=== PATIENT | female | born 1985 ===

== ENCOUNTER 2017-03-21 16:30 | Emergency (ER) | payer MEDICAID ==
[2017-03-21 16:31] VITALS: BMI 23.0
[2017-03-21 16:39] VITALS: RESP 16; TEMP 98.8
[2017-03-21] MEDS ORDERED: Sodium Chloride 0.9% 1,000 ML IV STA (17:03)
[2017-03-21] MEDS ORDERED: DiphenhydrAMINE 50 mg/ml Inj IVP STA (17:04)
--- NOTE | 2017-03-21 17:21 | ED PDOC ---
HPI: Headache Time Seen by Provider: 03/21/17 16:42 Chief Complaint (Nursing): Headache Chief Complaint (Provider): Headache History Per: Patient History/Exam Limitations: no limitations Onset/Duration Of Symptoms: Hrs (Since 13:00 today) Current Symptoms Are (Timing): Still Present Additional Complaint(s): 31 y/o female presents to the emergency department with a complaint of a headache that began around 13:00 today, 03/21/2017, while at work. States describes it was a sudden onset pressure like bitemporal headache and very similar to previous episodes of migraines. Associated with mild photophobia, persistent nausea, and 1 episode of vomiting at 14:30 followed by syncope. Syncope was unwitnessed but was then found by co-worker. Reports last meal was around 10 am this morning. Denies taking medications for symptoms, urinary incontinence, tongue biting, focal weakness, or trauma to head. Past Medical History Reviewed: Historical Data, Nursing Documentation, Vital Signs Vital Signs: Last Vital Signs Temp 98.8 F 03/21/17 16:36 Pulse 66 03/21/17 16:36 Resp 16 03/21/17 16:36 BP 121/76 03/21/17 16:36 Pulse Ox 100 03/21/17 16:36 - Medical History PMH: Anxiety, Asthma, Bipolar Disorder, Depression, Kidney Stones (RIGHT), Post Traumatic Stress Disorder Denies: Diabetes, Hepatitis, HIV, HTN, Seizures, Sexually Transmitted Disease - Surgical History Surgical History: No Surg Hx - Family History Family History: States: Unknown Family Hx - Social History Current smoker - smoking cessation education provided: Yes Drugs: Cannabis - Immunization History Hx Tetanus Toxoid Vaccination: No Hx Influenza Vaccination: No Hx Pneumococcal Vaccination: No - Home Medications Home Medications: Ambulatory Orders Medication Instructions Recorded Albuterol Sulfate [Albuterol 2 puff IH QID #1 inh 12/06/13 Sulfate Hfa] Naproxen [Naprosyn] 1 tab PO BID PRN #25 tab 12/24/13 Clindamycin [Cleocin] 300 mg PO QID #28 cap 09/19/16 Ibuprofen [Motrin] 600 mg PO TID PRN #30 tab 09/19/16 traMADol [Ultram] 50 mg PO Q8 PRN #12 tab 09/19/16 Cephalexin [Keflex] 500 mg PO QID #28 capsule 10/17/16 Docusate [Colace] 100 mg PO BID #20 cap 10/17/16 Sulfamethoxazole/Trimethoprim 2 each PO BID #28 tablet 10/17/16 [Bactrim Ds Tablet] oxyCODONE/Acetaminophen [Percocet 1 ea PO Q6 PRN #10 tab 10/17/16 5/325 mg Tab] Acetaminophen/Butalbital/Caf 1 tab PO TID PRN #20 tab 03/21/17 [Fioricet] Ondansetron ODT [Zofran ODT] 1 odt PO Q6 PRN #30 odt 03/21/17 SUMAtriptan [Imitrex] 1 tab PO PRN PRN #12 tab 03/21/17 - Allergies Allergies/Adverse Reactions: Allergies Allergy/AdvReac Type Severity Reaction Status Date / Time hydromorphone HCl Allergy ITCHING Verified 03/21/17 16:36 [From Dilaudid] Review of Systems ROS Statement: Except As Marked, All Systems Reviewed And Found Negative Constitutional: Negative for: Other (Trauma to the head) Eyes: Positive for: Other (Mild photophobia) ENT: Negative for: Other (Tongue biting) Gastrointestinal: Positive for: Nausea (Persistent), Vomiting (1 episode) Genitourinary Female: Negative for: Incontinence Neurological: Positive for: Headache (pressure like bitemporal headache). Negative for: Weakness (No focal weakness) Physical Exam - Reviewed Nursing Documentation Reviewed: Yes Vital Signs Reviewed: Yes - Physical Exam Appears: Positive for: Uncomfortable, In Acute Distress Head Exam: Positive for: ATRAUMATIC, NORMAL INSPECTION, NORMOCEPHALIC Skin: Positive for: Normal Color, Warm, Dry Eye Exam: Positive for: Normal appearance, EOMI, PERRL. Negative for: Nystagmus ENT: Positive for: Normal ENT Inspection. Negative for: Pharyngeal Erythema Neck: Positive for: Normal, Supple Cardiovascular/Chest: Positive for: Regular Rate, Rhythm. Negative for: Murmur Respiratory: Positive for: Normal Breath Sounds. Negative for: Accessory Muscle Use, Respiratory Distress Gastrointestinal/Abdominal: Positive for: Normal Exam, Soft. Negative for: Tenderness Back: Positive for: Normal Inspection Extremity: Positive for: Normal ROM. 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 Negative for: Motor/Sensory Deficits - Laboratory Results Result Diagrams: 03/21/17 17:20 03/21/17 17:20 - ECG O2 Sat by Pulse Oximetry: 100 (RA) Pulse Ox Interpretation: Normal Medical Decision Making Medical Decision Making: Time: 17:03 Initial impression: Migraine and syncope Initial plan: --Lab work-up --EKG --Urine DIP & Preg --Tylenol 975 mg PO --Benadryl 25 mg IVP --Toradol 15 mg IVP --Reglan 10 mg IVP --Sodium Chloride 1L IV 999 mls/hr --Reevaluation Time: 17:30 --Labs are unremarkable. -- Upon provider reevaluation patient is feeling better and improved with IV meds, is medically stable, and requires no further treatment in the ED at this time. Patient will be discharged home with Rx for Fioricet, Zofran ODT, and Imitrex. Counseling was provided, discussed findings, plan of care and answered all questions regarding diagnosis and need for follow up with Dr. Ilir Cabrera MD. There is agreement to discharge plan. Return if symptoms persist or worsen. Clinical Impression: Migraine Scribe Attestation: Documented by Reyna Lancaster, acting as a scribe for Natalya Hall MD. Provider Scribe Attestation: All medical record entries made by the Scribe were at my direction and personally dictated by me. I have reviewed the chart and agree that the record accurately reflects my personal performance of the history, physical exam, medical decision making, and the department course for this patient. I have also personally directed, reviewed, and agree with the discharge instructions and disposition. Disposition - Clinical Impression Clinical Impression: Migraine Counseled Patient/Family Regarding: Diagnosis, Need For Followup, Rx Given - Disposition Referrals: Ilir Cabrera MD [Staff Provider] - 03/22/17 Disposition: Routine/Home Disposition Time: 19:30 Condition: IMPROVED Prescriptions: Acetaminophen/Butalbital/Caf [Fioricet] 1 tab PO TID PRN #20 tab PRN Reason: Headache Ondansetron ODT [Zofran ODT] 1 odt PO Q6 PRN #30 odt PRN Reason: Nausea/Vomiting SUMAtriptan [Imitrex] 1 tab PO PRN PRN #12 tab PRN Reason: Migraine Headache Instructions: Migraine Headache (ED) Forms: [facility] (Mozambican), [facility] ED School/Work Excuse
[2017-03-21] MEDS ORDERED: DiphenhydrAMINE 50 mg/ml Inj ONE (17:22)
[2017-03-21 17:29] LABS: BASO % 0.4 % (0.0-2.0); EOS % 0.3 % (0.0-4.0); HEMOGLOBIN 11.9 g/dL (12.0-16.0); LYMPH # 1.2 K/uL (1.0-4.3); LYMPH % 17.2 % (20.0-40.0); MEAN CELL VOLUME 98.1 fl (81.0-99.0); MEAN CORPUSCULAR HEMOGLOBIN 32.5 pg (27.0-31.0); MEAN CORPUSCULAR HGB CONC 33.1 g/dL (33.0-37.0); MONO # 0.3 K/uL (0.0-0.8); MONO % 5.1 % (0.0-10.0); NEUT # 5.2 K/uL (1.8-7.0); RBC 3.65 Mil/uL (3.80-5.20); RED CELL DISTRIBUTION WIDTH 12.9 % (11.5-14.5); WHITE BLOOD COUNT 6.8 K/uL (4.8-10.8)
[2017-03-21 17:53] LABS: BARBITURATES, UR NEGATIVE (NEGATIVE); BENZODIAZEPINES, UR NEGATIVE (NEGATIVE); OPIATES, UR NEGATIVE (NEGATIVE); PHENCYCLIDINE, UR NEGATIVE (NEGATIVE)
[2017-03-21 18:05] LABS: ALB/GLOB RATIO 1.5 (1.0-2.1); ALBUMIN 3.8 g/dL (3.5-5.0); ALT/SGPT 34 U/L (9-52); AST/SGOT 20 U/L (14-36); BLOOD UREA NITROGEN 15 mg/dl (7-17); CALCIUM 9.4 mg/dL (8.4-10.2); GFR AFRICAN-AMERICAN > 60; GFR NON-AFRICAN AMERICAN > 60
[2017-03-21 20:02] VITALS: BP 111/67; PULSE 82
[2017-03-21 20:52] VITALS: O2SAT 100
--- NOTE | 2017-03-22 07:38 | CARD ---
APPROVED REPORT EKG Measurement Heart [id number] <Conclusion> Normal sinus rhythm with sinus arrhythmia Normal ECG
== END 2017-03-21 20:55 | disposition home or self-care (01) ==
LOC: H.ER 16:30
DX: G43.909 Migraine, unspecified, not intractable, without status migrainosus (principal); F31.9 Bipolar disorder, unspecified; F43.10 Post-traumatic stress disorder, unspecified

== ENCOUNTER 2017-03-31 18:53 | Emergency (ER) | payer MEDICAID ==
[2017-03-31 18:54] VITALS: BMI 23.0
[2017-03-31 19:01] VITALS: BP 133/92; PULSE 92; RESP 16; TEMP 98.4; O2SAT 100
[2017-03-31] MEDS ORDERED: Sodium Chloride 0.9% 1,000 ML IV STA (19:52)
--- NOTE | 2017-03-31 20:12 | ED PDOC ---
HPI: Headache Time Seen by Provider: 03/31/17 19:34 Chief Complaint (Nursing): Anxiety Chief Complaint (Provider): Headache and anxiety History Per: Patient History/Exam Limitations: no limitations, clinical condition Onset/Duration Of Symptoms: Mins (x30 minutes) Current Symptoms Are (Timing): Still Present Additional Complaint(s): Soledad Stephen, a 32 year old female, who has a past medical history of bipolar disorder, asthma and kidney stones presents to the ED complaining of a headache and anxiety which began an hour prior to arrival. The patient states she had an anxiety attack while at work and her current headache is not typical for her anxiety episodes. She states she developed an acute sense of panic and is uncertain as to whether or not she passed out. Event was unwitnessed. She states that she takes ativan for her anxiety but she ran out, she also states that she is not compliant with her bipolar medications. Patient has some associated nausea but no vomiting. Of note: Patient also notes a sensitive area on the back of her head in occiput , tender to touch. Past Medical History Reviewed: Historical Data, Nursing Documentation, Vital Signs Vital Signs: Last Vital Signs Temp 98.4 F 03/31/17 18:59 Pulse 92 H 03/31/17 18:59 Resp 16 03/31/17 18:59 BP 133/92 H 03/31/17 18:59 Pulse Ox 100 03/31/17 18:59 - Medical History PMH: Anxiety, Asthma, Bipolar Disorder, Depression, Kidney Stones (RIGHT), Post Traumatic Stress Disorder Denies: Diabetes, Hepatitis, HIV, HTN, Seizures, Sexually Transmitted Disease - Family History Family History: States: Unknown Family Hx - Social History Current smoker - smoking cessation education provided: Yes - Immunization History Hx Tetanus Toxoid Vaccination: No Hx Influenza Vaccination: No Hx Pneumococcal Vaccination: No - Home Medications Home Medications: Ambulatory Orders Medication Instructions Recorded Albuterol Sulfate [Albuterol 2 puff IH QID #1 inh 12/06/13 Sulfate Hfa] Naproxen [Naprosyn] 1 tab PO BID PRN #25 tab 12/24/13 Clindamycin [Cleocin] 300 mg PO QID #28 cap 09/19/16 Ibuprofen [Motrin] 600 mg PO TID PRN #30 tab 09/19/16 traMADol [Ultram] 50 mg PO Q8 PRN #12 tab 09/19/16 Cephalexin [Keflex] 500 mg PO QID #28 capsule 10/17/16 Docusate [Colace] 100 mg PO BID #20 cap 10/17/16 Sulfamethoxazole/Trimethoprim 2 each PO BID #28 tablet 10/17/16 [Bactrim Ds Tablet] oxyCODONE/Acetaminophen [Percocet 1 ea PO Q6 PRN #10 tab 10/17/16 5/325 mg Tab] Acetaminophen/Butalbital/Caf 1 tab PO TID PRN #20 tab 03/21/17 [Fioricet] Ondansetron ODT [Zofran ODT] 1 odt PO Q6 PRN #30 odt 03/21/17 SUMAtriptan [Imitrex] 1 tab PO PRN PRN #12 tab 03/21/17 - Allergies Allergies/Adverse Reactions: Allergies Allergy/AdvReac Type Severity Reaction Status Date / Time hydromorphone HCl Allergy ITCHING Verified 03/31/17 18:58 [From Dilaudid] Review of Systems ROS Statement: Except As Marked, All Systems Reviewed And Found Negative Gastrointestinal: Positive for: Nausea. Negative for: Vomiting Neurological: Positive for: Headache Psych: Positive for: Anxiety Physical Exam - Reviewed Nursing Documentation Reviewed: Yes Vital Signs Reviewed: Yes - Physical Exam Appears: Positive for: Non-toxic, No Acute Distress Head Exam: Positive for: ATRAUMATIC (Small palpable hematoma to occiput mildly tender.), NORMOCEPHALIC Skin: Positive for: Normal Color, Warm, Dry. Negative for: Rash Eye Exam: Positive for: EOMI, PERRL ENT: Positive for: Normal ENT Inspection Neck: Positive for: Normal, Painless ROM, Supple Cardiovascular/Chest: Positive for: Regular Rate, Rhythm, Chest Non Tender. Negative for: Tachycardia Respiratory: Positive for: Normal Breath Sounds. Negative for: Wheezing, Respiratory Distress Gastrointestinal/Abdominal: Positive for: Bowel Sounds, Soft. Negative for: Tenderness, Mass, Guarding, Rebound Back: Negative for: L CVA Tenderness, R CVA Tenderness Extremity: Negative for: Tenderness, Pedal Edema, Deformity, Swelling Neurologic/Psych: Positive for: Alert, Oriented, Gait - Laboratory Results Result Diagrams: 03/31/17 20:22 03/31/17 20:22 - ECG O2 Sat by Pulse Oximetry: 100 (RA) Pulse Ox Interpretation: Normal Medical Decision Making Medical Decision Makin Initial Impression: 32 year old female presenting with headache in setting of anxiety attack and non compliance with medication Initial Plan: * Alcohol Serum * CMP * Drug Screen * Crisis Evaluation * Upreg * Udip * CBC * NS 1000mls IV 1000mls/hr * Reglan 10mg IVPB * Urinalysis * Reevaluation 2232 Dictated and Authenticated by: Cyril Harper MD EXAM: CT Head Without Intravenous Contrast CLINICAL HISTORY: 32 years old, female; Pain; Headache; Headache not specified TECHNIQUE: Axial computed tomography images of the head/brain without intravenous contrast. All CT scans at this facility use one or more dose reduction techniques, viz.: automated exposure control; ma/kV adjustment per patient size (including targeted exams where dose is matched to indication; i.e. head); or iterative reconstruction technique. Coronal and sagittal reformatted images were created and reviewed. COMPARISON: No relevant prior studies available. FINDINGS: Brain: No intracranial hemorrhage. No mass. No definite edema. Ventricles: No hydrocephalus. Bones/joints: No acute fracture. Soft tissues: Unremarkable. Sinuses: No acute sinusitis. Mastoid air cells: No mastoid effusion. Orbits: Unremarkable as visualized. IMPRESSION: 1. No acute intracranial abnormality. 2256 Labs reviewed no clinically significant abnormalities. Patient has been evaluated by crisis and is stable for discharge. Patient has been referred to mental health center. Patient is complaining of persistent headache and requested fiorecet which was given. Diagnosis: Anxiety and Headache Condition: Stable Patient is medically stable and ready for d/c. Scribe Attestation Documented by Renita Esquivel acting as a scribe for Rafy Garcia MD. Provider Attestation All medical record entries made by the Scribe were at my direction and personally dictated by me. I have reviewed the chart and agree that the record accurately reflects my personal performance of the history, physical exam, medical decision making, and the department course for this patient. I have also personally directed, reviewed, and agree with the discharge instructions and disposition. Disposition - Clinical Impression Clinical Impression: Anxiety attack - Patient ED Disposition Is Patient to be Admitted: No Counseled Patient/Family Regarding: Studies Performed, Diagnosis - Disposition Disposition: Routine/Home Disposition Time: 22:57 Condition: STABLE Instructions: Anxiety (ED) Forms: [facility] (Hong Konger)
[2017-03-31 20:27] LABS: BASO % 0.5 % (0.0-2.0); EOS % 0.3 % (0.0-4.0); HEMOGLOBIN 12.8 g/dL (12.0-16.0); LYMPH # 1.5 K/uL (1.0-4.3); LYMPH % 15.2 % (20.0-40.0); MEAN CELL VOLUME 97.4 fl (81.0-99.0); MEAN CORPUSCULAR HEMOGLOBIN 32.5 pg (27.0-31.0); MEAN CORPUSCULAR HGB CONC 33.4 g/dL (33.0-37.0); MONO # 0.6 K/uL (0.0-0.8); MONO % 6.5 % (0.0-10.0); NEUT # 7.4 K/uL (1.8-7.0); NEUT % 77.5 % (50.0-75.0); RBC 3.95 Mil/uL (3.80-5.20); RED CELL DISTRIBUTION WIDTH 13.4 % (11.5-14.5); WHITE BLOOD COUNT 9.5 K/uL (4.8-10.8)
[2017-03-31 20:32] LABS: SQUAMOUS EPITHIAL 5 /hpf (0-5); URINE BACTERIA RARE (<OCC); URINE BILIRUBIN NEGATIVE (NEGATIVE); URINE BLOOD NEGATIVE (NEGATIVE); URINE CLARITY CLOUDY (Clear); URINE COLOR YELLOW (YELLOW); URINE GLUCOSE (UA) NEG (Normal); URINE LEUKOCYTE ESTERASE NEG Leu/uL (Negative); URINE NITRATE NEGATIVE (NEGATIVE); URINE PROTEIN 30 mg/dL (NEGATIVE); URINE UROBILINOGEN 0.2-1.0 mg/dL (0.2-1.0)
[2017-03-31 20:41] LABS: ALB/GLOB RATIO 1.5 (1.0-2.1); ALBUMIN 4.3 g/dL (3.5-5.0); ALT/SGPT 27 U/L (9-52); AST/SGOT 16 U/L (14-36); BLOOD UREA NITROGEN 20 mg/dl (7-17); CALCIUM 9.3 mg/dL (8.4-10.2); GFR AFRICAN-AMERICAN > 60; GFR NON-AFRICAN AMERICAN > 60
[2017-03-31 20:50] LABS: BARBITURATES, UR NEGATIVE (NEGATIVE); BENZODIAZEPINES, UR NEGATIVE (NEGATIVE); OPIATES, UR NEGATIVE (NEGATIVE); PHENCYCLIDINE, UR NEGATIVE (NEGATIVE)
--- NOTE | 2017-03-31 22:33 | CT ---
EXAM: CT Head Without Intravenous Contrast CLINICAL HISTORY: 32 years old, female; Pain; Headache; Headache not specified TECHNIQUE: Axial computed tomography images of the head/brain without intravenous contrast. All CT scans at this facility use one or more dose reduction techniques, viz.: automated exposure control; ma/kV adjustment per patient size (including targeted exams where dose is matched to indication; i.e. head); or iterative reconstruction technique. Coronal and sagittal reformatted images were created and reviewed. COMPARISON: No relevant prior studies available. FINDINGS: Brain: No intracranial hemorrhage. No mass. No definite edema. Ventricles: No hydrocephalus. Bones/joints: No acute fracture. Soft tissues: Unremarkable. Sinuses: No acute sinusitis. Mastoid air cells: No mastoid effusion. Orbits: Unremarkable as visualized. IMPRESSION: 1. No acute intracranial abnormality.
[2017-03-31] MEDS ORDERED: Apap-Butalbital-Caffeine 325-50-40mg Tab PO STA (22:50)
== END 2017-03-31 22:58 | disposition home or self-care (01) ==
LOC: H.ER 18:53
DX: R51 Headache (principal); F41.9 Anxiety disorder, unspecified; F31.9 Bipolar disorder, unspecified; F43.10 Post-traumatic stress disorder, unspecified; J45.909 Unspecified asthma, uncomplicated

== ENCOUNTER 2017-08-02 23:07 | Emergency (ER) | payer MEDICAID ==
[2017-08-02 23:07] VITALS: BMI 23.0
[2017-08-02 23:21] VITALS: RESP 16
--- NOTE | 2017-08-03 00:26 | ED PDOC ---
HPI: Skin/Bite Injury Time Seen by Provider: 08/02/17 23:28 Chief Complaint (Nursing): Abnormal Skin Integrity Chief Complaint (Provider): rash History Per: Patient History/Exam Limitations: no limitations Onset/Duration Of Symptoms: Days (2) Current Symptoms Are (Timing): Still Present Quality Of Symptoms: Itching Additional History Per: Patient Additional Complaint(s): 32 y/o female presents with pruritic rash to navel x 2 days. Patient applying anti-bacterial cream without improvement. Denies fever, nausea/vomiting, abdominal pain, drainage from site,known allergen. Past Medical History Reviewed: Historical Data, Nursing Documentation, Vital Signs Vital Signs: Last Vital Signs Temp 98.7 F 08/02/17 23:17 Pulse 63 08/02/17 23:17 Resp 16 08/02/17 23:17 BP 132/82 08/02/17 23:17 Pulse Ox 99 08/02/17 23:17 - Medical History PMH: Anxiety, Asthma, Bipolar Disorder, Depression, Kidney Stones (RIGHT), Migraine, Post Traumatic Stress Disorder Denies: Diabetes, Hepatitis, HIV, HTN, Seizures, Sexually Transmitted Disease - Family History Family History: States: Unknown Family Hx - Immunization History Hx Tetanus Toxoid Vaccination: No Hx Influenza Vaccination: No Hx Pneumococcal Vaccination: No - Home Medications Home Medications: Ambulatory Orders Medication Instructions Recorded Albuterol Sulfate [Albuterol 2 puff IH QID #1 inh 12/06/13 Sulfate Hfa] Naproxen [Naprosyn] 1 tab PO BID PRN #25 tab 12/24/13 Clindamycin [Cleocin] 300 mg PO QID #28 cap 09/19/16 Ibuprofen [Motrin] 600 mg PO TID PRN #30 tab 09/19/16 traMADol [Ultram] 50 mg PO Q8 PRN #12 tab 09/19/16 Cephalexin [Keflex] 500 mg PO QID #28 capsule 10/17/16 Docusate [Colace] 100 mg PO BID #20 cap 10/17/16 Sulfamethoxazole/Trimethoprim 2 each PO BID #28 tablet 10/17/16 [Bactrim Ds Tablet] oxyCODONE/Acetaminophen [Percocet 1 ea PO Q6 PRN #10 tab 10/17/16 5/325 mg Tab] Acetaminophen/Butalbital/Caf 1 tab PO TID PRN #20 tab 03/21/17 [Fioricet] Ondansetron ODT [Zofran ODT] 1 odt PO Q6 PRN #30 odt 03/21/17 SUMAtriptan [Imitrex] 1 tab PO PRN PRN #12 tab 03/21/17 Clotrimazole 1% Cream [Lotrimin 1%] 1 applic TP BID #1 tube 08/03/17 Hydrocortisone 1% Cream [Cortizone 1 appl TP BID #1 tube 08/03/17 1% Cream] - Allergies Allergies/Adverse Reactions: Allergies Allergy/AdvReac Type Severity Reaction Status Date / Time hydromorphone HCl Allergy ITCHING Verified 03/31/17 18:58 [From Dilaudid] Review of Systems ROS Statement: Except As Marked, All Systems Reviewed And Found Negative Skin: Positive for: Rash Physical Exam - Reviewed Nursing Documentation Reviewed: Yes Vital Signs Reviewed: Yes - Physical Exam Appears: Positive for: Well, Non-toxic, No Acute Distress Head Exam: Positive for: ATRAUMATIC, NORMAL INSPECTION, NORMOCEPHALIC Skin: Positive for: Rash (erythematous papular rash noted surrounding navel with scabbed lesions noted. No pustules, drainage noted) Extremity: Positive for: Normal ROM - ECG O2 Sat by Pulse Oximetry: 99 - Progress ED Course And Treament: Benadryl PO Patient educated on findings, discharged with rx hydrocortisone, clotrimazole. Advised Dermatology follow up. Return to ED for worsening/concerning symptoms. Disposition - Clinical Impression Clinical Impression: Rash and nonspecific skin eruption - Patient ED Disposition Is Patient to be Admitted: No Counseled Patient/Family Regarding: Diagnosis, Need For Followup, Rx Given - Disposition Disposition: Routine/Home Disposition Time: 00:28 Condition: GOOD Prescriptions: Clotrimazole 1% Cream [Lotrimin 1%] 1 applic TP BID #1 tube Hydrocortisone 1% Cream [Cortizone 1% Cream] 1 appl TP BID #1 tube Instructions: Acute Rash (ED) Forms: [facility] [employer] [facility] (Grenadian)
[2017-08-03 00:52] VITALS: BP 122/69; PULSE 81; TEMP 98.2; O2SAT 98
== END 2017-08-03 00:50 | disposition home or self-care (01) ==
LOC: H.ER 23:07
DX: R21 Rash and other nonspecific skin eruption (principal); F31.9 Bipolar disorder, unspecified; F43.10 Post-traumatic stress disorder, unspecified; J45.909 Unspecified asthma, uncomplicated

== ENCOUNTER 2017-08-22 23:33 | Emergency (ER) | payer MEDICAID ==
[2017-08-22 23:33] VITALS: BMI 23.0
[2017-08-22 23:43] VITALS: BP 148/98; RESP 20; TEMP 98.3; O2SAT 100
--- NOTE | 2017-08-23 00:25 | ED PDOC ---
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 (+) SOB. (-) suicidal or homicidal ideation. Reports feeling "like she was having a heart attack" on the walk back from her father's home. Patient notes multiple personal stressors, such has fighting with her and being laid off from work. Notes that she is inconsistently non-compliant with some of her medication and does not see a psychiatrist regularly. PCP: Non CPH Past Medical History Reviewed: Historical Data, Nursing Documentation, Vital Signs Vital Signs: Last Vital Signs Temp 98.3 F 08/22/17 23:40 Pulse 126 H 08/22/17 23:40 Resp 20 08/22/17 23:40 BP 148/98 H 08/22/17 23:40 Pulse Ox 100 08/22/17 23:40 - Medical History PMH: Anxiety, Asthma, Bipolar Disorder, Depression, Kidney Stones (RIGHT), Migraine, Post Traumatic Stress Disorder Denies: Diabetes, Hepatitis, HIV, HTN, Seizures, Sexually Transmitted Disease - Surgical History Surgical History: Denies: No Surg Hx Other surgeries: kidney stone surgery - Family History Family History: States: Unknown Family Hx - Living Arrangements Living Arrangements: With Family - Social History Current smoker - smoking cessation education provided: Yes (5 cigarettes a day ) Ex-Smoker (has not smoked in the last 12 months): No Drugs: Denies - Immunization History Hx Tetanus Toxoid Vaccination: No Hx Influenza Vaccination: No Hx Pneumococcal Vaccination: No - Home Medications Home Medications: Ambulatory Orders Medication Instructions Recorded Albuterol Sulfate [Albuterol 2 puff IH QID #1 inh 12/06/13 Sulfate Hfa] Naproxen [Naprosyn] 1 tab PO BID PRN #25 tab 12/24/13 Clindamycin [Cleocin] 300 mg PO QID #28 cap 09/19/16 Ibuprofen [Motrin] 600 mg PO TID PRN #30 tab 09/19/16 traMADol [Ultram] 50 mg PO Q8 PRN #12 tab 09/19/16 Cephalexin [Keflex] 500 mg PO QID #28 capsule 10/17/16 Docusate [Colace] 100 mg PO BID #20 cap 10/17/16 Sulfamethoxazole/Trimethoprim 2 each PO BID #28 tablet 10/17/16 [Bactrim Ds Tablet] oxyCODONE/Acetaminophen [Percocet 1 ea PO Q6 PRN #10 tab 10/17/16 5/325 mg Tab] Acetaminophen/Butalbital/Caf 1 tab PO TID PRN #20 tab 03/21/17 [Fioricet] Ondansetron ODT [Zofran ODT] 1 odt PO Q6 PRN #30 odt 03/21/17 SUMAtriptan [Imitrex] 1 tab PO PRN PRN #12 tab 03/21/17 Clotrimazole 1% Cream [Lotrimin 1%] 1 applic TP BID #1 tube 08/03/17 Hydrocortisone 1% Cream [Cortizone 1 appl TP BID #1 tube 08/03/17 1% Cream] - Allergies Allergies/Adverse Reactions: Allergies Allergy/AdvReac Type Severity Reaction Status Date / Time hydromorphone HCl Allergy ITCHING Verified 08/22/17 23:39 [From Dilaudid] Review of Systems ROS Statement: Except As Marked, All Systems Reviewed And Found Negative Respiratory: Positive for: Shortness of Breath Psych: Positive for: Anxiety. Negative for: Suicidal ideation, Other ((-) homicidal ideation) Physical Exam - Reviewed Nursing Documentation Reviewed: Yes Vital Signs Reviewed: Yes - Physical Exam Appears: Positive for: Non-toxic, No Acute Distress Skin: Positive for: Normal Color Cardiovascular/Chest: Positive for: Regular Rate, Rhythm, Murmur Respiratory: Positive for: Normal Breath Sounds. Negative for: Respiratory Distress Gastrointestinal/Abdominal: Positive for: Normal Exam, Soft. Negative for: Tenderness Neurologic/Psych: Positive for: Alert (awake), Oriented, Mood/Affect (calm, collected) - ECG ECG Rhythm: Positive for: Sinus Rhythm. Negative for: ST/T Changes Rate: 98 O2 Sat by Pulse Oximetry: 100 (RA) Pulse Ox Interpretation: Normal Medical Decision Making Medical Decision Makin Initial impression: anxiety Initial plan: * EKG * POC Urine 0239 Patient reports feeling improvement in symptoms and as per Dr. Zamora is stable for discharge home. Dx: anxiety Scribe Attestation: Documented by Sandi Cruz acting as a scribe for Diana Bobo MD. Scribe Attestation: All medical record entries made by the Scribe were at my direction and personally dictated by me. I have reviewed the chart and agree that the record accurately reflects my personal performance of the history, physical exam, medical decision making, and the department course for this patient. I have also personally directed, reviewed, and agree with the discharge instructions and disposition. Disposition - Clinical Impression Clinical Impression: Anxiety disorder - Disposition Disposition: Routine/Home Disposition Time: 02:39 Condition: STABLE Additional Instructions: follow up as an outpatient return to the ED with any worsening or concerning symptoms Instructions: Anxiety (ED) Forms: [employer] (Z[place]an)
[2017-08-23 00:29] VITALS: PULSE 98
--- NOTE | 2017-08-23 08:14 | CARD ---
APPROVED REPORT EKG Measurement Heart [id number] <Conclusion> Normal sinus rhythm Normal ECG
== END 2017-08-23 02:48 | disposition home or self-care (01) ==
LOC: H.ER 23:33
DX: F41.9 Anxiety disorder, unspecified (principal); F31.9 Bipolar disorder, unspecified; F43.10 Post-traumatic stress disorder, unspecified; J45.909 Unspecified asthma, uncomplicated

== ENCOUNTER 2017-09-02 18:27 | Emergency (ER) | payer MEDICAID ==
[2017-09-02 18:27] VITALS: BMI 23.0
[2017-09-02] MEDS ORDERED: Naproxen 500 MG TAB PO STA (20:24)
--- NOTE | 2017-09-02 20:27 | ED PDOC ---
Upper Extremity Pain/Injury Time Seen by Provider: 09/02/17 20:14 Chief Complaint (Nursing): Finger,Hand,&Wrist History Per: Patient History/Exam Limitations: no limitations Past Medical History Vital Signs: Last Vital Signs Temp 98.6 F 09/02/17 19:01 Pulse 94 H 09/02/17 19:01 Resp 18 09/02/17 19:01 BP 128/92 H 09/02/17 19:01 Pulse Ox 100 09/02/17 19:01 - Medical History PMH: Anxiety, Asthma, Bipolar Disorder, Depression, Kidney Stones (RIGHT), Migraine, Post Traumatic Stress Disorder Denies: Diabetes, Hepatitis, HIV, HTN, Seizures, Sexually Transmitted Disease - Family History Family History: States: Unknown Family Hx - Immunization History Hx Tetanus Toxoid Vaccination: No Hx Influenza Vaccination: No Hx Pneumococcal Vaccination: No - Home Medications Home Medications: Ambulatory Orders Medication Instructions Recorded Albuterol Sulfate [Albuterol 2 puff IH QID #1 inh 12/06/13 Sulfate Hfa] Naproxen [Naprosyn] 1 tab PO BID PRN #25 tab 12/24/13 Clindamycin [Cleocin] 300 mg PO QID #28 cap 09/19/16 Ibuprofen [Motrin] 600 mg PO TID PRN #30 tab 09/19/16 traMADol [Ultram] 50 mg PO Q8 PRN #12 tab 09/19/16 Cephalexin [Keflex] 500 mg PO QID #28 capsule 10/17/16 Docusate [Colace] 100 mg PO BID #20 cap 10/17/16 Sulfamethoxazole/Trimethoprim 2 each PO BID #28 tablet 10/17/16 [Bactrim Ds Tablet] oxyCODONE/Acetaminophen [Percocet 1 ea PO Q6 PRN #10 tab 10/17/16 5/325 mg Tab] Acetaminophen/Butalbital/Caf 1 tab PO TID PRN #20 tab 03/21/17 [Fioricet] Ondansetron ODT [Zofran ODT] 1 odt PO Q6 PRN #30 odt 03/21/17 SUMAtriptan [Imitrex] 1 tab PO PRN PRN #12 tab 03/21/17 Clotrimazole 1% Cream [Lotrimin 1%] 1 applic TP BID #1 tube 08/03/17 Hydrocortisone 1% Cream [Cortizone 1 appl TP BID #1 tube 08/03/17 1% Cream] Meloxicam [Mobic] 15 mg PO DAILY #20 tab 09/02/17 - Allergies Allergies/Adverse Reactions: Allergies Allergy/AdvReac Type Severity Reaction Status Date / Time hydromorphone HCl Allergy ITCHING Verified 09/02/17 19:01 [From Dilaudid] - ECG O2 Sat by Pulse Oximetry: 100 Medical Decision Making Medical Decision Making: Time: 20:25 Initial impression: Right wrist and hand pain Initial plan: Naproxen 500 mg PO Arnoldo Bandage ~ Scribe Attestation: Documented by Valerie Rivas, acting as a scribe for MONIQUE Byrd. Provider Scribe Attestation: All medical record entries made by the Scribe were at my direction and personally dictated by me. I have reviewed the chart and agree that the record accurately reflects my personal performance of the history, physical exam, medical decision making, and the department course for this patient. I have also personally directed, reviewed, and agree with the discharge instructions and disposition. Disposition - Disposition Forms: [employer] ([place]ami)
--- NOTE | 2017-09-02 20:27 | ED PDOC ---
Upper Extremity Pain/Injury Time Seen by Provider: 09/02/17 20:14 Chief Complaint (Nursing): Finger,Hand,&Wrist Chief Complaint (Provider): Right wrist pain History Per: Patient History/Exam Limitations: no limitations Onset/Duration Of Symptoms: Other (weeks) Additional Complaint(s): Patient is a 32 y/o female with no significant past medical history presenting to the emergency department for pain to her right dorsal hand and wrist ongoing for several weeks. Notes that a bump to the right dorsal wrist developed several days ago. Reports that the pain is worse with bending wrist. Denies trauma, injuries, numbness, or other complaints. PCP: none provided Past Medical History Reviewed: Historical Data, Nursing Documentation, Vital Signs Vital Signs: Last Vital Signs Temp 98.6 F 09/02/17 19:01 Pulse 94 H 09/02/17 19:01 Resp 18 09/02/17 19:01 BP 128/92 H 09/02/17 19:01 Pulse Ox 100 09/02/17 19:01 - Medical History PMH: Anxiety, Asthma, Bipolar Disorder, Depression, Kidney Stones (RIGHT), Migraine, Post Traumatic Stress Disorder Denies: Diabetes, Hepatitis, HIV, HTN, Seizures, Sexually Transmitted Disease - Family History Family History: States: Unknown Family Hx - Social History Current smoker - smoking cessation education provided: Yes Ex-Smoker (has not smoked in the last 12 months): No Alcohol: None Drugs: Denies - Immunization History Hx Tetanus Toxoid Vaccination: No Hx Influenza Vaccination: No Hx Pneumococcal Vaccination: No - Home Medications Home Medications: Ambulatory Orders Medication Instructions Recorded Albuterol Sulfate [Albuterol 2 puff IH QID #1 inh 12/06/13 Sulfate Hfa] Naproxen [Naprosyn] 1 tab PO BID PRN #25 tab 12/24/13 Clindamycin [Cleocin] 300 mg PO QID #28 cap 09/19/16 Ibuprofen [Motrin] 600 mg PO TID PRN #30 tab 09/19/16 traMADol [Ultram] 50 mg PO Q8 PRN #12 tab 09/19/16 Cephalexin [Keflex] 500 mg PO QID #28 capsule 10/17/16 Docusate [Colace] 100 mg PO BID #20 cap 10/17/16 Sulfamethoxazole/Trimethoprim 2 each PO BID #28 tablet 10/17/16 [Bactrim Ds Tablet] oxyCODONE/Acetaminophen [Percocet 1 ea PO Q6 PRN #10 tab 10/17/16 5/325 mg Tab] Acetaminophen/Butalbital/Caf 1 tab PO TID PRN #20 tab 03/21/17 [Fioricet] Ondansetron ODT [Zofran ODT] 1 odt PO Q6 PRN #30 odt 03/21/17 SUMAtriptan [Imitrex] 1 tab PO PRN PRN #12 tab 03/21/17 Clotrimazole 1% Cream [Lotrimin 1%] 1 applic TP BID #1 tube 08/03/17 Hydrocortisone 1% Cream [Cortizone 1 appl TP BID #1 tube 08/03/17 1% Cream] Meloxicam [Mobic] 15 mg PO DAILY #20 tab 09/02/17 - Allergies Allergies/Adverse Reactions: Allergies Allergy/AdvReac Type Severity Reaction Status Date / Time hydromorphone HCl Allergy ITCHING Verified 09/02/17 19:01 [From Dilaudid] Physical Exam - Reviewed Nursing Documentation Reviewed: Yes Vital Signs Reviewed: Yes - Physical Exam Appears: Positive for: Well, Non-toxic, No Acute Distress Head Exam: Positive for: ATRAUMATIC, NORMAL INSPECTION, NORMOCEPHALIC Skin: Positive for: Normal Color, Warm, Dry Eye Exam: Positive for: Normal appearance Neck: Positive for: Normal Pulses-Radial (R): 2+ Extremity: Positive for: Normal ROM, Capillary Refill (normal), Other (ganglion cyst noted on right upper extremity). Negative for: Tenderness, Pedal Edema, Deformity, Swelling Neurologic/Psych: Positive for: Alert, traveling clerk II-XII, Oriented (x3). Negative for : Motor/Sensory Deficits - ECG O2 Sat by Pulse Oximetry: 100 (RA) Pulse Ox Interpretation: Normal Medical Decision Making Medical Decision Making: Time: 20:25 Initial impression: Right wrist and hand pain Initial plan: Naproxen 500 mg PO Arnoldo Bandage 20:26 Advised patient of diagnoses of ganglion cyst. Arnoldo wrap applied. Instructed patient to follow up with an orthopedist. Patient is stable for discharge. Advised patient to return to ED if symptoms worsen. ~ Scribe Attestation: Documented by Valerie Rivas, acting as a scribe for MONIQUE Byrd. Provider Scribe Attestation: All medical record entries made by the Scribe were at my direction and personally dictated by me. I have reviewed the chart and agree that the record accurately reflects my personal performance of the history, physical exam, medical decision making, and the department course for this patient. I have also personally directed, reviewed, and agree with the discharge instructions and disposition. Disposition - Clinical Impression Clinical Impression: Wrist pain, right, Ganglion cyst of dorsum of right wrist - Patient ED Disposition Is Patient to be Admitted: No Counseled Patient/Family Regarding: Diagnosis, Need For Followup, Rx Given - Disposition Referrals: Pratik Morel III, MD [Staff Provider] - Disposition: Routine/Home Disposition Time: 20:26 Condition: STABLE Prescriptions: Meloxicam [Mobic] 15 mg PO DAILY #20 tab Instructions: Ganglion Cysts (ED) Forms: [employer] ([place]), [facility] ED School/Work Excuse Print Language: POLISH - PA / CORPSMAN / Resident Statement / has reviewed & agrees with the documentation as recorded.
[2017-09-02] MEDS ORDERED: Naproxen 500 MG TAB PO ONE (20:28)
[2017-09-02 22:45] VITALS: BP 128/92; PULSE 94; RESP 18; TEMP 98.6; O2SAT 100
== END 2017-09-02 20:57 | disposition home or self-care (01) ==
LOC: H.ER 18:27
DX: M67.431 Ganglion, right wrist (principal)

== ENCOUNTER 2017-09-17 12:46 | Emergency (ER) | payer MEDICAID ==
[2017-09-17 12:46] VITALS: BMI 23.0
[2017-09-17 13:56] VITALS: BP 135/84; PULSE 88; RESP 20; TEMP 98.8; O2SAT 99
[2017-09-17] MEDS: guaiFENesin 200 mg/10 ml Syrup UD PO ONE ×2 (16:14→16:16)
--- NOTE | 2017-09-17 16:26 | ED PDOC ---
HPI: CCC, URI, Sore Throat Time Seen by Provider: 09/17/17 15:04 Chief Complaint (Nursing): Flu-like Symptoms Chief Complaint (Provider): Flu-like Symptoms History Per: Patient History/Exam Limitations: no limitations Onset/Duration Of Symptoms: Hrs (< 24 hours) Current Symptoms Are (Timing): Still Present Sick Contacts (Context): None Additional Complaint(s): Patient presents complaining of fever with cough, congestion, body aches, sore throat, headache, and chills since last night. Otherwise: (-) SOB, (-) chest pain, (-) N/V/D, (-) abdominal pain, (-) flank pain, (-) urinary symptoms, (-) recent travel, (-) sick contacts. PMD: None Past Medical History Reviewed: Historical Data, Nursing Documentation, Vital Signs Vital Signs: Last Vital Signs Temp 98.8 F 09/17/17 13:54 Pulse 88 09/17/17 13:54 Resp 20 09/17/17 13:54 BP 135/84 09/17/17 13:54 Pulse Ox 99 09/17/17 18:44 - Medical History PMH: Anxiety, Asthma, Bipolar Disorder, Depression, Kidney Stones (RIGHT), Migraine, Post Traumatic Stress Disorder Denies: Diabetes, Hepatitis, HIV, HTN, Seizures, Sexually Transmitted Disease - Family History Family History: States: Unknown Family Hx - Social History Current smoker - smoking cessation education provided: Yes - Immunization History Hx Tetanus Toxoid Vaccination: No Hx Influenza Vaccination: No Hx Pneumococcal Vaccination: No - Home Medications Home Medications: Ambulatory Orders Medication Instructions Recorded Albuterol Sulfate [Albuterol 2 puff IH QID #1 inh 12/06/13 Sulfate Hfa] Naproxen [Naprosyn] 1 tab PO BID PRN #25 tab 12/24/13 Clindamycin [Cleocin] 300 mg PO QID #28 cap 09/19/16 Ibuprofen [Motrin] 600 mg PO TID PRN #30 tab 09/19/16 traMADol [Ultram] 50 mg PO Q8 PRN #12 tab 09/19/16 Cephalexin [Keflex] 500 mg PO QID #28 capsule 10/17/16 Docusate [Colace] 100 mg PO BID #20 cap 10/17/16 Sulfamethoxazole/Trimethoprim 2 each PO BID #28 tablet 10/17/16 [Bactrim Ds Tablet] oxyCODONE/Acetaminophen [Percocet 1 ea PO Q6 PRN #10 tab 10/17/16 5/325 mg Tab] Acetaminophen/Butalbital/Caf 1 tab PO TID PRN #20 tab 03/21/17 [Fioricet] Ondansetron ODT [Zofran ODT] 1 odt PO Q6 PRN #30 odt 03/21/17 SUMAtriptan [Imitrex] 1 tab PO PRN PRN #12 tab 03/21/17 Clotrimazole 1% Cream [Lotrimin 1%] 1 applic TP BID #1 tube 08/03/17 Hydrocortisone 1% Cream [Cortizone 1 appl TP BID #1 tube 08/03/17 1% Cream] Meloxicam [Mobic] 15 mg PO DAILY #20 tab 09/02/17 Guaifenesin 400 mg PO QID #20 tablet 09/17/17 Ibuprofen [Motrin Tab] 600 mg PO QID PRN #20 tab 09/17/17 Ondansetron ODT [Zofran ODT] 4 mg PO DAILY PRN #20 odt 09/17/17 Oseltamivir Phosphate [Tamiflu] 75 mg PO BID #10 capsule 09/17/17 - Allergies Allergies/Adverse Reactions: Allergies Allergy/AdvReac Type Severity Reaction Status Date / Time hydromorphone HCl Allergy ITCHING Verified 09/17/17 13:54 [From Dilaudid] Review of Systems ROS Statement: Except As Marked, All Systems Reviewed And Found Negative Constitutional: Positive for: Fever, Chills, Other (Body aches) ENT: Positive for: Nose Congestion, Throat Pain Cardiovascular: Negative for: Chest Pain Respiratory: Positive for: Cough. Negative for: Shortness of Breath Neurological: Positive for: Headache Physical Exam - Reviewed Nursing Documentation Reviewed: Yes Vital Signs Reviewed: Yes - Physical Exam Comments: GENERAL APPEARANCE: Patient is awake, alert, oriented x 3, in no acute distress. SKIN: Warm, dry; (-) cyanosis, (-) rash. (-) Decubitus Ulcer EYES: (-) conjunctival pallor, (-) scleral icterus, (-) conjunctival hemorrhage. ENMT: Mucous membranes moist. TMs: (-) erythema. Airway patent: (-) stridor. Pharynx: (-) erythema, (-) exudate. NECK: (-) tenderness, (-) stiffness, (-) meningismus, (-) lymphadenopathy. CHEST AND RESPIRATORY: (-) accessory muscle use. Lungs: (-) rales, (-) rhonchi, (-) wheezes, (-) rub; breath sounds equal bilaterally. HEART AND CARDIOVASCULAR: (-) irregularity; (-) murmur, (-) gallop, (-) rub. ABDOMEN AND GI: Soft; (-) tenderness, (-) guarding; (-) organomegaly; (-) mass ; (-) CVA tenderness. EXTREMITIES: (-) deformity; (-) cellulitis, (-) lymphangitis; (-) subungual hemorrhage; (-) edema. NEURO AND PSYCH: Mental status as above; (-) focal findings. - ECG O2 Sat by Pulse Oximetry: 99 (RA) Pulse Ox Interpretation: Normal Medical Decision Making Medical Decision Making: Time: 15:47 Plan: * Motrin 600 mg * Robitussin 400mg * Tamiflu 75mg * Zofran 4mg Based on history and exam, plan will be to discharge patient with prescriptions for: Guaifenesin, Motrin, Tamiflu, and Zofran. Advised to follow up with primary care physician in 1-2 days without fail. Advised to take medication as prescribed. Return to the emergency room at any time for any new or worsening symptoms. Patient states she fully agrees with and understands discharge instructions. States that she agrees with the plan and disposition. Verbalized and repeated discharge instructions and plan. I have given the patient opportunity to ask any additional questions. Scribe Attestation: Documented by Terese Lemus, acting as a scribe for Daina Alfonso PA-C Provider Scribe Attestation: All medical record entries made by the Scribe were at my direction and personally dictated by me. I have reviewed the chart and agree that the record accurately reflects my personal performance of the history, physical exam, medical decision making, and the department course for this patient. I have also personally directed, reviewed, and agree with the discharge instructions and disposition. Disposition - Clinical Impression Clinical Impression: Influenza-like symptoms - Patient ED Disposition Is Patient to be Admitted: No Counseled Patient/Family Regarding: Diagnosis, Need For Followup, Rx Given - Disposition Referrals: [facility] [Outside] Disposition: Routine/Home Disposition Time: 16:01 Condition: STABLE Additional Instructions: Thank you for letting us take care of you today. You were treated for viral illness, likely influenza. The emergency medical care you received today was directed at your acute symptoms. If you were prescribed any medication, please fill it and take as directed. It may take several days for your symptoms to resolve. Return to the Emergency Department if your symptoms worsen, do not improve, or if you have any other problems. Please contact your doctor in 2 days for re-evaluation and follow up / or call one of the physicians/clinics you have been referred to that are listed on the Patient Visit Information form that is included in your discharge packet. Bring any paperwork you were given at discharge with you along with any medications you are taking to your follow up visit. Our treatment cannot replace ongoing medical care by a primary care provider (PCP) outside of the emergency department. Thank you for allowing the [facility] team to be part of your care today. Prescriptions: Guaifenesin 400 mg PO QID #20 tablet Ibuprofen [Motrin Tab] 600 mg PO QID PRN #20 tab PRN Reason: Fever >100.4 F Ondansetron ODT [Zofran ODT] 4 mg PO DAILY PRN #20 odt PRN Reason: Nausea/Vomiting Oseltamivir Phosphate [Tamiflu] 75 mg PO BID #10 capsule Instructions: Influenza (ED) Forms: [employer] (Maltese), [facility] ED School/Work Excuse - POA Present On Arrival: None - PA / SURGICAL TECHNOLOGY INSTRUCTOR / Resident Statement MD/DO has reviewed & agrees with the documentation as recorded.
== END 2017-09-17 18:37 | disposition home or self-care (01) ==
LOC: H.ER 12:46
DX: B34.9 Viral infection, unspecified (principal); F31.9 Bipolar disorder, unspecified; F43.10 Post-traumatic stress disorder, unspecified; J45.909 Unspecified asthma, uncomplicated

== ENCOUNTER 2017-10-23 01:10 | Emergency (ER) | payer SELFPAY ==
[2017-10-23 01:10] VITALS: BMI 23.0
[2017-10-23 01:21] VITALS: BP 130/88; PULSE 92; RESP 16; TEMP 98.7; O2SAT 96
--- NOTE | 2017-10-23 01:47 | ED PDOC ---
HPI: General Adult Time Seen by Provider: 10/23/17 01:23 Chief Complaint (Nursing): ENT Problem History Per: Patient History/Exam Limitations: no limitations Onset/Duration Of Symptoms: Mins Have you had recent travel within the past 21 days to any of the following countries: [place], [place], [place] or [place]?: No Current Symptoms Are (Timing): Gone Now Additional Complaint(s): Patient states that she had a nosebleed from both nostrils for 20 minutes, states she blew her nose and it got worse and felt it going down her throat. Denies injury, no medications. Denies lightheadedness, dizziness, or other bleeding diathesis. Past Medical History Reviewed: Historical Data, Nursing Documentation Vital Signs: Last Vital Signs Temp 98.7 F 10/23/17 01:18 Pulse 92 H 10/23/17 01:18 Resp 16 10/23/17 01:18 BP 130/88 10/23/17 01:18 Pulse Ox 96 10/23/17 01:18 - Medical History PMH: Anxiety, Asthma, Bipolar Disorder, Depression, Kidney Stones (RIGHT), Migraine, Post Traumatic Stress Disorder Denies: Diabetes, Hepatitis, HIV, HTN, Seizures, Sexually Transmitted Disease - Family History Family History: States: Unknown Family Hx - Immunization History Hx Tetanus Toxoid Vaccination: No Hx Influenza Vaccination: No Hx Pneumococcal Vaccination: No - Home Medications Home Medications: Ambulatory Orders Medication Instructions Recorded Albuterol Sulfate [Albuterol 2 puff IH QID #1 inh 12/06/13 Sulfate Hfa] Naproxen [Naprosyn] 1 tab PO BID PRN #25 tab 12/24/13 Clindamycin [Cleocin] 300 mg PO QID #28 cap 09/19/16 Ibuprofen [Motrin] 600 mg PO TID PRN #30 tab 09/19/16 traMADol [Ultram] 50 mg PO Q8 PRN #12 tab 09/19/16 Cephalexin [Keflex] 500 mg PO QID #28 capsule 10/17/16 Docusate [Colace] 100 mg PO BID #20 cap 10/17/16 Sulfamethoxazole/Trimethoprim 2 each PO BID #28 tablet 10/17/16 [Bactrim Ds Tablet] oxyCODONE/Acetaminophen [Percocet 1 ea PO Q6 PRN #10 tab 10/17/16 5/325 mg Tab] Acetaminophen/Butalbital/Caf 1 tab PO TID PRN #20 tab 03/21/17 [Fioricet] Ondansetron ODT [Zofran ODT] 1 odt PO Q6 PRN #30 odt 03/21/17 SUMAtriptan [Imitrex] 1 tab PO PRN PRN #12 tab 03/21/17 Clotrimazole 1% Cream [Lotrimin 1%] 1 applic TP BID #1 tube 08/03/17 Hydrocortisone 1% Cream [Cortizone 1 appl TP BID #1 tube 08/03/17 1% Cream] Meloxicam [Mobic] 15 mg PO DAILY #20 tab 09/02/17 Guaifenesin 400 mg PO QID #20 tablet 09/17/17 Ibuprofen [Motrin Tab] 600 mg PO QID PRN #20 tab 09/17/17 Ondansetron ODT [Zofran ODT] 4 mg PO DAILY PRN #20 odt 09/17/17 Oseltamivir Phosphate [Tamiflu] 75 mg PO BID #10 capsule 09/17/17 - Allergies Allergies/Adverse Reactions: Allergies Allergy/AdvReac Type Severity Reaction Status Date / Time hydromorphone HCl Allergy ITCHING Verified 10/23/17 01:17 [From Dilaudid] Review of Systems ROS Statement: Except As Marked, All Systems Reviewed And Found Negative Physical Exam - Reviewed Nursing Documentation Reviewed: Yes Vital Signs Reviewed: Yes - Physical Exam Appears: Positive for: Well, Non-toxic, No Acute Distress Head Exam: Positive for: ATRAUMATIC, NORMAL INSPECTION, NORMOCEPHALIC Skin: Positive for: Normal Color, Warm, DRY Eye Exam: Positive for: EOMI, Normal appearance, PERRL ENT: Positive for: Pharynx Is (normal), Other (No active bleeding, irritated nasal mucosa) Cardiovascular/Chest: Positive for: Regular Rate, Rhythm Respiratory: Positive for: CNT, Normal Breath Sounds Back: Positive for: Normal Inspection Extremity: Positive for: Normal ROM Neurologic/Psych: Positive for: Alert, Oriented - ECG O2 Sat by Pulse Oximetry: 96 Medical Decision Making Medical Decision Making: Patient with resolved epistaxis, CBC wnl, will refer to ENT. Return precautions discussed. Disposition - Clinical Impression Clinical Impression: Epistaxis - Patient ED Disposition Is Patient to be Admitted: No - Disposition Referrals: Trey Euceda MD [Staff Provider] - Disposition: Routine/Home Disposition Time: 01:48 Condition: IMPROVED Instructions: Nosebleeds
[2017-10-23 01:55] LABS: HEMOGLOBIN 11.2 g/dL (12.0-16.0); MEAN CELL VOLUME 98.3 fl (81.0-99.0); MEAN CORPUSCULAR HEMOGLOBIN 32.8 pg (27.0-31.0); MEAN CORPUSCULAR HGB CONC 33.3 g/dL (33.0-37.0); RBC 3.41 Mil/uL (3.80-5.20); RED CELL DISTRIBUTION WIDTH 13.3 % (11.5-14.5); WHITE BLOOD COUNT 5.2 K/uL (4.8-10.8)
== END 2017-10-23 02:11 | disposition home or self-care (01) ==
LOC: H.ER 01:10
DX: R04.0 Epistaxis (principal)

== ENCOUNTER 2018-01-13 13:44 | Emergency (ER) | payer SELFPAY ==
[2018-01-13 13:45] VITALS: BMI 23.0
--- NOTE | 2018-01-13 14:34 | ED PDOC ---
HPI: Chest Pain Time Seen by Provider: 01/13/18 14:03 Chief Complaint (Nursing): Chest Pain Chief Complaint (Provider): Left sided chest pain History Per: Patient History/Exam Limitations: no limitations Onset/Duration Of Symptoms: Days (x3 weeks), Intermittent Episodes Current Symptoms Are (Timing): Still Present Quality: Sharp Associated Symptoms: denies: Dyspnea Additional Complaint(s): Soledad Stephen is a 32 year old female, with a past medical history of asthma and anxiety, who presents to the emergency department complaining of intermittent left sided chest pain onset for x3 weeks. Patient reports the pain as sharp and non-radiating. Pain is not associated with shortness of breath. She denies any fever, chills or other medical complaints. PMD: None provided. Past Medical History Reviewed: Historical Data, Nursing Documentation, Vital Signs Vital Signs: Last Vital Signs Temp 98.4 F 01/13/18 14:14 Pulse 70 01/13/18 14:14 Resp 19 01/13/18 14:14 BP 120/84 01/13/18 14:14 Pulse Ox 99 01/13/18 14:38 - Medical History PMH: Anxiety, Asthma, Bipolar Disorder, Depression, Kidney Stones (RIGHT), Migraine, Post Traumatic Stress Disorder, Chronic Kidney Disease Denies: Diabetes, Hepatitis, HIV, HTN, Seizures, Sexually Transmitted Disease - Surgical History Surgical History: No Surg Hx - Family History Family History: States: Unknown Family Hx - Social History Current smoker - smoking cessation education provided: Yes (light smoker <10 cigarettes daily) Alcohol: None Drugs: Denies - Immunization History Hx Tetanus Toxoid Vaccination: No Hx Influenza Vaccination: No Hx Pneumococcal Vaccination: No - Home Medications Home Medications: Ambulatory Orders Medication Instructions Recorded Albuterol Sulfate [Albuterol 2 puff IH QID #1 inh 12/06/13 Sulfate Hfa] Naproxen [Naprosyn] 1 tab PO BID PRN #25 tab 12/24/13 Clindamycin [Cleocin] 300 mg PO QID #28 cap 09/19/16 Ibuprofen [Motrin] 600 mg PO TID PRN #30 tab 09/19/16 traMADol [Ultram] 50 mg PO Q8 PRN #12 tab 09/19/16 Cephalexin [Keflex] 500 mg PO QID #28 capsule 10/17/16 Docusate [Colace] 100 mg PO BID #20 cap 10/17/16 Sulfamethoxazole/Trimethoprim 2 each PO BID #28 tablet 10/17/16 [Bactrim Ds Tablet] oxyCODONE/Acetaminophen [Percocet 1 ea PO Q6 PRN #10 tab 10/17/16 5/325 mg Tab] Acetaminophen/Butalbital/Caf 1 tab PO TID PRN #20 tab 03/21/17 [Fioricet] Ondansetron ODT [Zofran ODT] 1 odt PO Q6 PRN #30 odt 03/21/17 SUMAtriptan [Imitrex] 1 tab PO PRN PRN #12 tab 03/21/17 Clotrimazole 1% Cream [Lotrimin 1%] 1 applic TP BID #1 tube 08/03/17 Hydrocortisone 1% Cream [Cortizone 1 appl TP BID #1 tube 08/03/17 1% Cream] Meloxicam [Mobic] 15 mg PO DAILY #20 tab 09/02/17 Guaifenesin 400 mg PO QID #20 tablet 09/17/17 Ibuprofen [Motrin Tab] 600 mg PO QID PRN #20 tab 09/17/17 Ondansetron ODT [Zofran ODT] 4 mg PO DAILY PRN #20 odt 09/17/17 Oseltamivir Phosphate [Tamiflu] 75 mg PO BID #10 capsule 09/17/17 Naproxen [Naprosyn] 500 mg PO Q12H #20 tab 01/13/18 Non-Formulary 1 ea .ROUTE Q6 #1 ea 01/13/18 - Allergies Allergies/Adverse Reactions: Allergies Allergy/AdvReac Type Severity Reaction Status Date / Time hydromorphone HCl Allergy ITCHING Verified 10/23/17 01:17 [From Dilaudid] Review of Systems ROS Statement: Except As Marked, All Systems Reviewed And Found Negative Constitutional: Negative for: Fever, Chills Cardiovascular: Positive for: Chest Pain (left sided intermittent sharp) Respiratory: Negative for: Shortness of Breath Physical Exam - Reviewed Nursing Documentation Reviewed: Yes Vital Signs Reviewed: Yes - Physical Exam Appears: Positive for: Non-toxic Head Exam: Positive for: ATRAUMATIC, NORMOCEPHALIC Skin: Positive for: Normal Color, Warm, Dry Eye Exam: Positive for: Normal appearance Neck: Positive for: Painless ROM Cardiovascular/Chest: Positive for: Regular Rate, Rhythm, Chest Non Tender. Negative for: Murmur Respiratory: Positive for: Normal Breath Sounds (clear bilaterally). Negative for: Respiratory Distress Gastrointestinal/Abdominal: Positive for: Normal Exam, Soft. Negative for: Tenderness Back: Negative for: L CVA Tenderness, R CVA Tenderness, Vertebral Tenderness Extremity: Positive for: Normal ROM (upper and lower extremities). Negative for : Calf Tenderness, Deformity, Swelling Neurologic/Psych: Positive for: Alert, Oriented - ECG O2 Sat by Pulse Oximetry: 99 (RA) Pulse Ox Interpretation: Normal Medical Decision Making Medical Decision Making: Time: 14:03 Initial Plan: --EKG --Chest two views (PA/LAT)[RAD] --Reevaluation ~ Scribe Attestation: Documented by Jonathan Ngo, acting as a scribe for Jonnie Valente MD. Provider Scribe Attestation: All medical record entries made by the Scribe were at my direction and personally dictated by me. I have reviewed the chart and agree that the record accurately reflects my personal performance of the history, physical exam, medical decision making, and the department course for this patient. I have also personally directed, reviewed, and agree with the discharge instructions and disposition. Disposition - Clinical Impression Clinical Impression: Chest pain - Patient ED Disposition Is Patient to be Admitted: No Counseled Patient/Family Regarding: Studies Performed, Diagnosis, Need For Followup, Rx Given - Disposition Referrals: [facility] [Outside] Disposition: Routine/Home Disposition Time: 16:07 Condition: FAIR Prescriptions: Naproxen [Naprosyn] 500 mg PO Q12H #20 tab Non-Formulary 1 ea .ROUTE Q6 #1 ea Instructions: Chest Pain Forms: [employer] (Hungarian)
[2018-01-13 14:38] VITALS: RESP 19; TEMP 98.4
[2018-01-13 16:21] VITALS: BP 124/72; PULSE 64; O2SAT 100
--- NOTE | 2018-01-13 16:37 | RAD ---
HISTORY: chest pain COMPARISON: 11/25/2013 TECHNIQUE: Chest PA and lateral FINDINGS: LUNGS: No active pulmonary disease. PLEURA: No significant pleural effusion identified. No pneumothorax apparent. CARDIOVASCULAR: Normal. OSSEOUS STRUCTURES: No significant abnormalities. VISUALIZED UPPER ABDOMEN: Normal. OTHER FINDINGS: None. IMPRESSION: No active disease.
--- NOTE | 2018-01-13 18:58 | CARD ---
APPROVED REPORT EKG Measurement Heart [id number] PA [id number] <Conclusion> Normal sinus rhythm Normal ECG
== END 2018-01-13 16:28 | disposition home or self-care (01) ==
LOC: H.ER 13:44
DX: R07.89 Other chest pain (principal)

== ENCOUNTER 2018-01-22 16:18 | Emergency (ER) | payer SELFPAY ==
[2018-01-22 16:18] VITALS: BMI 23.0
[2018-01-22 16:31] VITALS: PULSE 62; RESP 20; TEMP 98.2; O2SAT 100
[2018-01-22 17:07] LABS: SQUAMOUS EPITHIAL < 1 /hpf (0-5); URINE BILIRUBIN NEGATIVE (NEGATIVE); URINE BLOOD NEGATIVE (NEGATIVE); URINE CLARITY CLEAR (Clear); URINE COLOR YELLOW (YELLOW); URINE GLUCOSE (UA) NEG (Normal); URINE LEUKOCYTE ESTERASE NEG Leu/uL (Negative); URINE PROTEIN NEGATIVE (NEGATIVE); URINE UROBILINOGEN 0.2-1.0 mg/dL (0.2-1.0)
--- NOTE | 2018-01-22 18:20 | ED PDOC ---
HPI: Female Pain Time Seen by Provider: 01/22/18 16:33 Chief Complaint (Nursing): Female Genitourinary Chief Complaint (Provider): Urinary Frequency History Per: Patient History/Exam Limitations: no limitations Onset/Duration Of Symptoms: Hrs (since 11am) Current Symptoms Are (Timing): Still Present Additional Complaint(s): 32 year old female, with a history of asthma, kidney stones, anxiety, bipolar disorder and migraines, presents to ED for evaluation of urinary frequency since 11am today. (-) fever, (-) chills, (-) n/v/d, (-) flank pain, (-) back pain, (-) abdominal pain, (-) vaginal discharge, (-) vaginal bleeding (-) dysuria (-) incontinence (-) hematuria. Patient reports taking Tylenol at 13: 00. Patient reports history of UTIs but notes that she normally has dysuria with UTIs. LMP 01/20/18. PMD: No Provider Past Medical History Reviewed: Historical Data, Nursing Documentation, Vital Signs Vital Signs: Last Vital Signs Temp 98.2 F 01/22/18 16:29 Pulse 62 01/22/18 16:29 Resp 20 01/22/18 16:29 BP 140/97 H 01/22/18 16:29 Pulse Ox 100 01/22/18 16:29 - Medical History PMH: Anxiety, Asthma, Bipolar Disorder, Depression, Kidney Stones, Migraine, Post Traumatic Stress Disorder Denies: Diabetes - Family History Family History: States: Unknown Family Hx - Social History Current smoker - smoking cessation education provided: Yes (5 cigarettes a day) Alcohol: None Drugs: Denies - Home Medications Home Medications: Ambulatory Orders Medication Instructions Recorded Albuterol Sulfate [Albuterol 2 puff IH QID #1 inh 12/06/13 Sulfate Hfa] Naproxen [Naprosyn] 1 tab PO BID PRN #25 tab 12/24/13 Clindamycin [Cleocin] 300 mg PO QID #28 cap 09/19/16 Ibuprofen [Motrin] 600 mg PO TID PRN #30 tab 09/19/16 traMADol [Ultram] 50 mg PO Q8 PRN #12 tab 09/19/16 Cephalexin [Keflex] 500 mg PO QID #28 capsule 10/17/16 Docusate [Colace] 100 mg PO BID #20 cap 10/17/16 Sulfamethoxazole/Trimethoprim 2 each PO BID #28 tablet 10/17/16 [Bactrim Ds Tablet] oxyCODONE/Acetaminophen [Percocet 1 ea PO Q6 PRN #10 tab 10/17/16 5/325 mg Tab] Acetaminophen/Butalbital/Caf 1 tab PO TID PRN #20 tab 03/21/17 [Fioricet] Ondansetron ODT [Zofran ODT] 1 odt PO Q6 PRN #30 odt 03/21/17 SUMAtriptan [Imitrex] 1 tab PO PRN PRN #12 tab 03/21/17 Clotrimazole 1% Cream [Lotrimin 1%] 1 applic TP BID #1 tube 08/03/17 Hydrocortisone 1% Cream [Cortizone 1 appl TP BID #1 tube 08/03/17 1% Cream] Meloxicam [Mobic] 15 mg PO DAILY #20 tab 09/02/17 Guaifenesin 400 mg PO QID #20 tablet 09/17/17 Ibuprofen [Motrin Tab] 600 mg PO QID PRN #20 tab 09/17/17 Ondansetron ODT [Zofran ODT] 4 mg PO DAILY PRN #20 odt 09/17/17 Oseltamivir Phosphate [Tamiflu] 75 mg PO BID #10 capsule 09/17/17 Albuterol HFA [Ventolin HFA 90 2 puff IH Q4H #1 puff 01/13/18 mcg/actuation (8 g)] Naproxen [Naprosyn] 500 mg PO Q12H #20 tab 01/13/18 Non-Formulary 1 ea .ROUTE Q6 #1 ea 01/13/18 - Allergies Allergies/Adverse Reactions: Allergies Allergy/AdvReac Type Severity Reaction Status Date / Time hydromorphone HCl Allergy ITCHING Verified 01/22/18 16:29 [From Dilaudid] Review of Systems ROS Statement: Except As Marked, All Systems Reviewed And Found Negative Constitutional: Negative for: Fever, Chills Gastrointestinal: Negative for: Nausea, Vomiting, Abdominal Pain, Diarrhea Genitourinary Female: Positive for: Frequency. Negative for: Vaginal Discharge , Vaginal Bleeding Musculoskeletal: Negative for: Back Pain, Other (flank pain) Physical Exam - Reviewed Nursing Documentation Reviewed: Yes Vital Signs Reviewed: Yes - Physical Exam Comments: GENERAL APPEARANCE: Patient is awake, alert, oriented x 3, in no acute distress. Resting comfortably, talking on cell phone. SKIN: Warm, dry; (-) cyanosis. EYES: (-) conjunctival pallor. ENMT: Mucous membranes moist. Airway patent: (-) stridor. NECK: Supple, FROM (-) tenderness, (-) stiffness, (-) lymphadenopathy. CHEST AND RESPIRATORY: (-) wheezing; (-) rales, (-) rhonchi, (-) rub; breath sounds equal bilaterally. Speaking in full sentences, respirations even and nonlabored. HEART AND CARDIOVASCULAR: (-) irregularity; (-) murmur, (-) gallop. ABDOMEN AND GI: Soft; (-) tenderness (-) guarding (-) CVA tenderness (-) distention. EXTREMITIES: (-) deformity, (-) edema. NEURO AND PSYCH: Mental status as above; (-) focal findings. Gait steady, speech clear. (-) facial asymmetry (-) aphasia - Laboratory Results Urine POC: Negative - ECG O2 Sat by Pulse Oximetry: 100 (RA) Pulse Ox Interpretation: Normal Medical Decision Making Medical Decision Making: Time: 16:36 Impression(s): Urinary Frequency Plan: - ED Urine - Urine Culture - UA 1815 - Accucheck: 75 Urinalysis reviewed and unremarkable. Urine culture pending. On re-evaluation, patient offers no additional complaints. On exam, patient remains AAOx3, in no acute distress. Lungs clear to auscultation, cardiac RRR, abdomen soft, non-tender, repeat neuro exam shows no focal findings. VSS, stable for discharge. Lab/Diagnostic results d/w the patient in great detail. Diagnosis of urinary frequency d/w the patient. Based on history, exam and diagnostic results, plan will be for outpatient follow up. Patient instructed to follow-up with pmd / referral provided / the clinic in 1- 2 days without fail. Advised to take medication as prescribed. Return to the emergency room at any time for any new or worsening symptoms. Patient states she fully agrees with and understands discharge instructions. States that she agrees with the plan and disposition. Verbalized and repeated discharge instructions and plan. I have given the patient opportunity to ask any additional questions. Scribe Attestation: Documented by Rohan Nugent, acting as a scribe for JAME Ballard. Provider Scribe Attestation: All medical record entries made by the Scribe were at my direction and personally dictated by me. I have reviewed the chart and agree that the record accurately reflects my personal performance of the history, physical exam, medical decision making, and the department course for this patient. I have also personally directed, reviewed, and agree with the discharge instructions and disposition. Disposition - Clinical Impression Clinical Impression: Urinary frequency - Patient ED Disposition Is Patient to be Admitted: No Counseled Patient/Family Regarding: Studies Performed, Diagnosis, Need For Followup - Disposition Referrals: [facility] [Outside] Disposition: Routine/Home Disposition Time: 18:17 Condition: STABLE Additional Instructions: FOLLOW UP WITH PMD/CLINIC IN 1-2 DAYS WITHOUT FAIL. RETURN TO ED WITH ANY NEW OR WORSENING SYMPTOMS. Instructions: General (DC) Forms: [employer] (Greenlandic) Print Language: MARSHALLESE - POA Present On Arrival: None Results - Lab Results Lab Results: 01/22/18 01/22/18 18:02 16:50 POC Glucose (mg/dL) 75 Urine Color Yellow Urine Clarity Clear Urine pH 6.0 Ur Specific [place] 1.014 Urine Protein Negative Urine Glucose (UA) Neg Urine Ketones Negative Urine Blood Negative Urine Nitrate Negative Urine Bilirubin Negative Urine Urobilinogen 0.2-1.0 Ur Leukocyte Esterase Neg Urine RBC (Auto) 2 Urine Microscopic WBC < 1 Ur Squamous Epith Cells < 1
[2018-01-22 18:45] VITALS: BP 139/88
== END 2018-01-22 18:44 | disposition home or self-care (01) ==
LOC: H.ER 16:18
DX: R35.0 Frequency of micturition (principal); F17.210 Nicotine dependence, cigarettes, uncomplicated; Z86.59 Personal history of other mental and behavioral disorders; F43.10 Post-traumatic stress disorder, unspecified; J45.909 Unspecified asthma, uncomplicated; Z87.440 Personal history of urinary (tract) infections; Z87.442 Personal history of urinary calculi

== ENCOUNTER 2018-02-05 16:20 | Emergency (ER) | payer SELFPAY ==
[2018-02-05 16:20] VITALS: BMI 23.0
[2018-02-05 16:32] VITALS: BP 142/92; RESP 18; TEMP 98; O2SAT 100
--- NOTE | 2018-02-05 17:04 | ED PDOC ---
HPI: Chest Pain Time Seen by Provider: 02/05/18 16:32 Chief Complaint (Nursing): Chest Pain History Per: Patient Additional Complaint(s): Pt. states for the past 3 weeks she's had constant mid-sternal chest pain. Reports that she was initially seen in ED last month for it and had CXR and was dc'd. Pt. states pain continued but never followed up. She thought it was possibly due to her anxiety but she has not felt anxious. 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 Also states that she when she as at the store she was looking for an item and told her father that they would find it in the kitchen. Pt. states she began googling her symptoms and now she is concerned about having a blood clot in her lungs. 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 States between working 2 jobs and tkaing care of her family she gets approximately 2-3 hours of sleep per night. Pt. states she feels tired. Also states this morning she woke up with L eye redness and discharge. Denies headache, fever, palpitations, hemoptysis, visual changes, contact lens use, trauma, head injury, eye pain, leg pain, recent prolonged limb immobilization, recent surgery, SI/HI, hallucinations, control use, hormonal therapy. Past Medical History Reviewed: Historical Data, Nursing Documentation, Vital Signs Vital Signs: Last Vital Signs Temp 98 F 02/05/18 16:29 Pulse 76 02/05/18 20:36 Resp 18 02/05/18 16:29 BP 142/92 H 02/05/18 16:29 Pulse Ox 100 02/05/18 20:36 - Medical History PMH: Anxiety, Asthma, Bipolar Disorder, Depression, Kidney Stones, Migraine, Post Traumatic Stress Disorder, Chronic Kidney Disease Denies: Diabetes, Hepatitis, HIV, HTN, Seizures, Sexually Transmitted Disease - Surgical History Surgical History: No Surg Hx - Family History Family History: States: Hypertension Denies: NC, CAD - Living Arrangements Living Arrangements: With Family - Social History Current smoker - smoking cessation education provided: Yes SMOKER/PACKS PER DAY:: 5 (4-5 cigarettes/day) Drugs: Denies - Immunization History Hx Tetanus Toxoid Vaccination: No Hx Influenza Vaccination: No Hx Pneumococcal Vaccination: No - Home Medications Home Medications: Ambulatory Orders Medication Instructions Recorded Albuterol Sulfate [Albuterol 2 puff IH QID #1 inh 12/06/13 Sulfate Hfa] Naproxen [Naprosyn] 1 tab PO BID PRN #25 tab 12/24/13 Clindamycin [Cleocin] 300 mg PO QID #28 cap 09/19/16 Ibuprofen [Motrin] 600 mg PO TID PRN #30 tab 09/19/16 traMADol [Ultram] 50 mg PO Q8 PRN #12 tab 09/19/16 Cephalexin [Keflex] 500 mg PO QID #28 capsule 10/17/16 Docusate [Colace] 100 mg PO BID #20 cap 10/17/16 Sulfamethoxazole/Trimethoprim 2 each PO BID #28 tablet 10/17/16 [Bactrim Ds Tablet] oxyCODONE/Acetaminophen [Percocet 1 ea PO Q6 PRN #10 tab 10/17/16 5/325 mg Tab] Acetaminophen/Butalbital/Caf 1 tab PO TID PRN #20 tab 03/21/17 [Fioricet] Ondansetron ODT [Zofran ODT] 1 odt PO Q6 PRN #30 odt 03/21/17 SUMAtriptan [Imitrex] 1 tab PO PRN PRN #12 tab 03/21/17 Clotrimazole 1% Cream [Lotrimin 1%] 1 applic TP BID #1 tube 08/03/17 Hydrocortisone 1% Cream [Cortizone 1 appl TP BID #1 tube 08/03/17 1% Cream] Meloxicam [Mobic] 15 mg PO DAILY #20 tab 09/02/17 Guaifenesin 400 mg PO QID #20 tablet 09/17/17 Ibuprofen [Motrin Tab] 600 mg PO QID PRN #20 tab 09/17/17 Ondansetron ODT [Zofran ODT] 4 mg PO DAILY PRN #20 odt 09/17/17 Oseltamivir Phosphate [Tamiflu] 75 mg PO BID #10 capsule 09/17/17 Albuterol HFA [Ventolin HFA 90 2 puff IH Q4H #1 puff 01/13/18 mcg/actuation (8 g)] Naproxen [Naprosyn] 500 mg PO Q12H #20 tab 01/13/18 Non-Formulary 1 ea .ROUTE Q6 #1 ea 01/13/18 - Allergies Allergies/Adverse Reactions: Allergies Allergy/AdvReac Type Severity Reaction Status Date / Time hydromorphone HCl Allergy ITCHING Verified 02/05/18 16:29 [From Dilaudid] SB Risk Score for UA/NSTEMI - SB Risk Score Age > 64: NO 3 or more CAD Risk Factors: NO Known CAD (Stenosis greater than 50%): NO Aspirin use in past 7 days: NO Severe Angina: NO EKG ST changes greater than 0.5mm: NO Positive Cardiac Marker: NO SB Score: 0 Risk %: 5% Wells Criteria for PE - Wells Criteria for Pulmonary Embolism Clinical Signs and Symptoms of DVT: No P.E is #1 Diagnosis, or Equally Likely: No Heart Rate >100: No Immobilization at least 3 days;Surgery previous 4 weeks: No Previous, objectively diagnosed PE or DVT: No Hemoptysis: No Malignancy w/treatment within 6 months, or palliative: No Total Score: 0 Review of Systems ROS Statement: Except As Marked, All Systems Reviewed And Found Negative Eyes: Positive for: Redness Cardiovascular: Positive for: Chest Pain Neurological: Positive for: Confusion Physical Exam - Reviewed Nursing Documentation Reviewed: Yes Vital Signs Reviewed: Yes - Physical Exam Appears: Positive for: Well, Non-toxic, No Acute Distress Head Exam: Positive for: ATRAUMATIC, NORMAL INSPECTION, NORMOCEPHALIC Skin: Positive for: Normal Color, Warm. Negative for: Rash Eye Exam: Positive for: EOMI (without pain), PERRL, Conjunctival injection (L conjunctival injection without discharge). Negative for: Nystagmus, Periorbital swelling, Periorbital tenderness ENT: Positive for: Normal ENT Inspection Neck: Positive for: Normal, Painless ROM Cardiovascular/Chest: Positive for: Regular Rate, Rhythm Respiratory: Positive for: CNT, Normal Breath Sounds Gastrointestinal/Abdominal: Positive for: Normal Exam, Soft. Negative for: Tenderness Back: Positive for: Normal Inspection. Negative for: L CVA Tenderness, R CVA Tenderness Extremity: Positive for: Normal ROM. Negative for: Calf Tenderness (b/l) Neurologic/Psych: Positive for: Alert, Oriented, Mood/Affect (calm, cooperative) . Negative for: Aphasia, Facial Droop - Laboratory Results Result Diagrams: 02/05/18 17:16 02/05/18 17:16 - ECG ECG: Positive for: Interpreted By Me ECG Rhythm: Positive for: Sinus Rhythm. Negative for: ST/T Changes Rate: 76 O2 Sat by Pulse Oximetry: 100 - Progress ED Course And Treament: Labs, CT head w/o contrast ordered. Pt. placed on intensive care medicine specialist. 1740 On re-evaluation, pt. reports feeling much better. Pending CT. 1899 CT head w/o contrast: negative. 2014 Pt. evaluated by Lenore wicker worker, who spoke with Dr. Joe and cleared pt. for discharge. Pt. informed of plan and agrees with care. Informed of diagnostic results. States she is feeling much better. Pt. is calm and cooperative. Denies chest pain, headache, SOB. Polytrim eye drops ordered. Disposition - Clinical Impression Clinical Impression: Conjunctivitis, Anxiety - Patient ED Disposition Is Patient to be Admitted: No - Disposition Referrals: [facility] [Outside] Disposition: Routine/Home Disposition Time: 20:15 Condition: STABLE Additional Instructions: Use 1 drop of polytrim in affected eye every three hours for 7 days. Follow up with PMD for further evaluation. Return to ED immediately if symptoms worsen. Instructions: Anxiety, Adult (DC), Conjunctivitis ([place]) (DC) Forms: [employer] ([place]an) Print Language: TELUGU
[2018-02-05 17:12] VITALS: PULSE 76
[2018-02-05 17:23] LABS: BASO % 0.7 % (0.0-2.0); EOS # 0.1 K/uL (0.0-0.7); EOS % 1.2 % (0.0-4.0); LYMPH # 1.9 K/uL (1.0-4.3); LYMPH % 28.7 % (20.0-40.0); MEAN PLATELET VOLUME 9.8 fl (7.2-11.7); MONO # 0.5 K/uL (0.0-0.8); MONO % 7.5 % (0.0-10.0); NEUT % 61.9 % (50.0-75.0); NRBC % 0.1 % (0.0-0.0); RBC 4.02 Mil/uL (3.80-5.20); RED CELL DISTRIBUTION WIDTH 12.7 % (11.5-14.5); WHITE BLOOD COUNT 6.5 K/uL (4.8-10.8)
[2018-02-05 17:32] LABS: HEMOGLOBIN 13.3 g/dL (12.0-16.0)
[2018-02-05 17:38] LABS: ALB/GLOB RATIO 1.2 (1.0-2.1); ALBUMIN 3.9 g/dL (3.5-5.0); ALT/SGPT 27 U/L (9-52); AST/SGOT 19 U/L (14-36); BLOOD UREA NITROGEN 15 mg/dl (7-17); GFR AFRICAN-AMERICAN > 60; GFR NON-AFRICAN AMERICAN > 60
[2018-02-05 17:41] LABS: BARBITURATES, UR NEGATIVE (NEGATIVE); BENZODIAZEPINES, UR NEGATIVE (NEGATIVE); OPIATES, UR NEGATIVE (NEGATIVE); PHENCYCLIDINE, UR NEGATIVE (NEGATIVE)
--- NOTE | 2018-02-05 18:22 | CT ---
PROCEDURE: CT HEAD WITHOUT CONTRAST. HISTORY: AMS COMPARISON: None available. TECHNIQUE: Axial computed tomography images were obtained through the head/brain without intravenous contrast. Radiation dose: Total exam DLP = mGy-cm. This CT exam was performed using one or more of the following dose reduction techniques: Automated exposure control, adjustment of the mA and/or kV according to patient size, and/or use of iterative reconstruction technique. FINDINGS: HEMORRHAGE: No intracranial hemorrhage. BRAIN: Normal shore-white matter differentiation and density are appreciated throughout the cerebrum and cerebellum with the brainstem appearing unremarkable as well. There is no mass effect. There is no suspicious extra-axial fluid collection and the midline brain anatomy appears diffusely unremarkable. VENTRICLES: Unremarkable. No hydrocephalus. CALVARIUM: Unremarkable. PARANASAL SINUSES: Unremarkable as visualized. No significant inflammatory changes. MASTOID AIR CELLS: Unremarkable as visualized. No inflammatory changes. OTHER FINDINGS: None. IMPRESSION: Stable unremarkable unenhanced head CT.
[2018-02-05 19:01] LABS: SQUAMOUS EPITHIAL < 1 /hpf (0-5); URINE BACTERIA RARE (<OCC); URINE BILIRUBIN NEGATIVE (NEGATIVE); URINE BLOOD NEGATIVE (NEGATIVE); URINE CLARITY CLEAR (Clear); URINE COLOR STRAW (YELLOW); URINE GLUCOSE (UA) NEG (Normal); URINE LEUKOCYTE ESTERASE NEG Leu/uL (Negative); URINE PROTEIN NEGATIVE (NEGATIVE); URINE UROBILINOGEN 0.2-1.0 mg/dL (0.2-1.0)
[2018-02-05] MEDS ORDERED: Polymyxin/Trimethoprim Ophth Soln OS STA (19:13)
--- NOTE | 2018-02-06 11:19 | CARD ---
APPROVED REPORT EKG Measurement Heart [id number] ME [id number] <Conclusion> Sinus rhythm with marked sinus arrhythmia with short ME Otherwise normal ECG
== END 2018-02-05 20:50 | disposition home or self-care (01) ==
LOC: H.ER 16:20
DX: H10.9 Unspecified conjunctivitis (principal); F41.9 Anxiety disorder, unspecified; F17.210 Nicotine dependence, cigarettes, uncomplicated; Z86.59 Personal history of other mental and behavioral disorders; J45.909 Unspecified asthma, uncomplicated; N18.9 Chronic kidney disease, unspecified; Z87.442 Personal history of urinary calculi
CPT/HCPCS: 70450; 80053; 81003; 81025; 84484; 85025; 85378; 93005; 99283; G0480

== ENCOUNTER 2018-05-08 10:29 | Emergency (ER) | payer OTHER ==
[2018-05-08 10:29] VITALS: BMI 23.0
[2018-05-08 10:35] VITALS: TEMP 98.5
[2018-05-08 10:41] VITALS: O2SAT 98
[2018-05-08] MEDS ORDERED: DiphenhydrAMINE 50 mg/ml Inj IVP STA (10:54)
[2018-05-08] MEDS ORDERED: Albuterol-Ipratrop 3 mg / 0.5 (3 ml) UD INH STA (10:54)
--- NOTE | 2018-05-08 11:04 | ED PDOC ---
HPI: CCC, URI, Sore Throat Time Seen by Provider: 05/08/18 10:39 Chief Complaint (Nursing): ENT Problem Chief Complaint (Provider): SOB History Per: Patient History/Exam Limitations: no limitations Additional Complaint(s): Pt reports woke up with SOB this AM, associated with sore throat and minimal cough. Also c/o swelling to R eyelid, intermittent X 1 week, resolves on its own, no eye pain, no visual changes. Had crusting to both eyes last week that has since resolved. Denies fever, CP. Past Medical History Reviewed: Nursing Documentation, Vital Signs Vital Signs: Last Vital Signs Temp 98.5 F 05/08/18 10:39 Pulse 68 05/08/18 10:39 Resp 20 05/08/18 10:39 BP 107/73 05/08/18 10:39 Pulse Ox 98 05/08/18 12:25 - Medical History PMH: Anxiety, Asthma, Bipolar Disorder, Depression, Kidney Stones, Migraine, Post Traumatic Stress Disorder, Chronic Kidney Disease Denies: Diabetes, Hepatitis, HIV, HTN, Seizures, Sexually Transmitted Disease - Family History Family History: States: Unknown Family Hx, Hypertension Denies: [place], CAD - Living Arrangements Living Arrangements: With Family - Social History Current smoker - smoking cessation education provided: Yes Alcohol: None - Immunization History Hx Tetanus Toxoid Vaccination: No Hx Influenza Vaccination: No Hx Pneumococcal Vaccination: No - Home Medications Home Medications: Ambulatory Orders Medication Instructions Recorded Albuterol Sulfate [Albuterol 2 puff IH QID #1 inh 12/06/13 Sulfate Hfa] Naproxen [Naprosyn] 1 tab PO BID PRN #25 tab 12/24/13 Clindamycin [Cleocin] 300 mg PO QID #28 cap 09/19/16 Ibuprofen [Motrin] 600 mg PO TID PRN #30 tab 09/19/16 traMADol [Ultram] 50 mg PO Q8 PRN #12 tab 09/19/16 Cephalexin [Keflex] 500 mg PO QID #28 capsule 10/17/16 Docusate [Colace] 100 mg PO BID #20 cap 10/17/16 Sulfamethoxazole/Trimethoprim 2 each PO BID #28 tablet 10/17/16 [Bactrim Ds Tablet] oxyCODONE/Acetaminophen [Percocet 1 ea PO Q6 PRN #10 tab 10/17/16 5/325 mg Tab] Acetaminophen/Butalbital/Caf 1 tab PO TID PRN #20 tab 03/21/17 [Fioricet] Ondansetron ODT [Zofran ODT] 1 odt PO Q6 PRN #30 odt 03/21/17 SUMAtriptan [Imitrex] 1 tab PO PRN PRN #12 tab 03/21/17 Clotrimazole 1% Cream [Lotrimin 1%] 1 applic TP BID #1 tube 08/03/17 Hydrocortisone 1% Cream [Cortizone 1 appl TP BID #1 tube 08/03/17 1% Cream] Meloxicam [Mobic] 15 mg PO DAILY #20 tab 09/02/17 Guaifenesin 400 mg PO QID #20 tablet 09/17/17 Ibuprofen [Motrin Tab] 600 mg PO QID PRN #20 tab 09/17/17 Ondansetron ODT [Zofran ODT] 4 mg PO DAILY PRN #20 odt 09/17/17 Oseltamivir Phosphate [Tamiflu] 75 mg PO BID #10 capsule 09/17/17 Albuterol HFA [Ventolin HFA 90 2 puff IH Q4H #1 puff 01/13/18 mcg/actuation (8 g)] Naproxen [Naprosyn] 500 mg PO Q12H #20 tab 01/13/18 Non-Formulary 1 ea .ROUTE Q6 #1 ea 01/13/18 Albuterol 0.083% [Albuterol 0.083% 3 ml IH Q6H PRN #30 neb 05/08/18 Inhal Tammy (2.5 mg/3 ml) UD] Albuterol HFA [Ventolin HFA 90 2 puff IH [id number] PRN #1 bottle 05/08/18 mcg/actuation (8 g)] DiphenhydrAMINE [Benadryl] 50 mg PO Q6H PRN #10 cap 05/08/18 Prednisone 50 mg PO DAILY #4 tab 05/08/18 - Allergies Allergies/Adverse Reactions: Allergies Allergy/AdvReac Type Severity Reaction Status Date / Time hydromorphone HCl Allergy ITCHING Verified 05/08/18 10:38 [From Dilaudid] Review of Systems Constitutional: Negative for: Fever, Chills Eyes: Positive for: Eyelid Inflammation. Negative for: Vision Change, Conjunctivae Inflammation, Redness Cardiovascular: Negative for: Chest Pain Respiratory: Positive for: Cough, Shortness of Breath. Negative for: Sputum Gastrointestinal: Negative for: Nausea, Vomiting, Abdominal Pain, Diarrhea Genitourinary Female: Negative for: Dysuria, Hematuria Musculoskeletal: Negative for: Back Pain Skin: Negative for: Rash, Lesions Neurological: Negative for: Headache, Dizziness Physical Exam - Reviewed Nursing Documentation Reviewed: Yes Vital Signs Reviewed: Yes - Physical Exam Appears: Positive for: Well, No Acute Distress (Speaking full sentences) Head Exam: Positive for: ATRAUMATIC, NORMAL INSPECTION Skin: Positive for: Normal Color, Warm, Dry Eye Exam: Positive for: EOMI, PERRL, Other (Minmal erythema/edema R eyelid). Negative for: Periorbital swelling, Periorbital tenderness, Conjunctival injection, Scleral icterus ENT: Positive for: Pharynx Is (Clear). Negative for: Sinus Pain/Drainage, Nasal Congestion, Pharyngeal Erythema, Tonsillar Exudate, Tonsillar Swelling Cardiovascular/Chest: Positive for: Regular Rate, Rhythm Respiratory: Positive for: Normal Breath Sounds. Negative for: Rales, Rhonchi, Wheezing Neurologic/Psych: Positive for: Alert, Oriented - Laboratory Results Result Diagrams: 05/08/18 11:15 05/08/18 11:15 - ECG O2 Sat by Pulse Oximetry: 98 Pulse Ox Interpretation: Normal - Radiology X-Ray: Interpreted by [place] X-Ray Interpretation: No Acute Disease Medical Decision Making Medical Decision Makin yo female with cough, SOB and sore throat. - labs - CXR - Albuterol/atrovent nebs - Solumedrol - Benadryl Disposition - Clinical Impression Clinical Impression: Asthma, URI (upper respiratory infection) - Disposition Referrals: [facility] [Outside] Disposition: Routine/Home Disposition Time: 12:44 Condition: IMPROVED Prescriptions: Albuterol HFA [Ventolin HFA 90 mcg/actuation (8 g)] 2 puff IH [id number] PRN #1 bottle PRN Reason: Shortness Of Breath Albuterol 0.083% [Albuterol 0.083% Inhal Tammy (2.5 mg/3 ml) UD] 3 ml IH Q6H PRN # 30 neb PRN Reason: Shortness Of Breath DiphenhydrAMINE [Benadryl] 50 mg PO Q6H PRN #10 cap PRN Reason: Allergy Symptoms Prednisone 50 mg PO DAILY #4 tab Instructions: Asthma in Adults, Viral Upper Respiratory Infection, Adult (DC) Forms: [employer] (Divehi)
[2018-05-08 11:20] LABS: BASO % 0.5 % (0.0-2.0); EOS # 0.1 K/uL (0.0-0.7); EOS % 1.4 % (0.0-4.0); HEMOGLOBIN 12.2 g/dL (12.0-16.0); LYMPH # 0.7 K/uL (1.0-4.3); LYMPH % 14.6 % (20.0-40.0); MEAN CELL VOLUME 98.2 fl (81.0-99.0); MEAN CORPUSCULAR HEMOGLOBIN 32.8 pg (27.0-31.0); MEAN CORPUSCULAR HGB CONC 33.4 g/dL (33.0-37.0); MONO # 0.3 K/uL (0.0-0.8); MONO % 6.8 % (0.0-10.0); NEUT # 3.5 K/uL (1.8-7.0); NEUT % 76.7 % (50.0-75.0); RBC 3.72 Mil/uL (3.80-5.20); RED CELL DISTRIBUTION WIDTH 12.6 % (11.5-14.5); WHITE BLOOD COUNT 4.5 K/uL (4.8-10.8)
[2018-05-08] MEDS ORDERED: DiphenhydrAMINE 50 mg/ml Inj ONE (11:20)
[2018-05-08] MEDS ORDERED: Albuterol-Ipratrop 3 mg / 0.5 (3 ml) UD ONE (11:21)
[2018-05-08 11:25] LABS: PROTHROMBIN TIME 10.7 Seconds (9.8-13.1)
[2018-05-08 11:28] LABS: PARTIAL THROMBOPLASTIN TIME 29.4 Seconds (25.6-37.1)
[2018-05-08 11:30] LABS: ALB/GLOB RATIO 1.2 (1.0-2.1); ALBUMIN 3.8 g/dL (3.5-5.0); ALT/SGPT 20 U/L (9-52); AST/SGOT 17 U/L (14-36); BLOOD UREA NITROGEN 14 mg/dl (7-17); CALCIUM 8.9 mg/dL (8.4-10.2); D DIMER < 200 ng/mlDDU (0-230); GFR NON-AFRICAN AMERICAN > 60
[2018-05-08 13:22] VITALS: BP 110/74; PULSE 70; RESP 18
--- NOTE | 2018-05-08 17:56 | RAD ---
Date of service: 05/08/2018 HISTORY: SOB COMPARISON: No prior. TECHNIQUE: Chest PA and lateral FINDINGS: LUNGS: No active pulmonary disease. PLEURA: No significant pleural effusion identified. No pneumothorax apparent. CARDIOVASCULAR: Normal. OSSEOUS STRUCTURES: No significant abnormalities. VISUALIZED UPPER ABDOMEN: Normal. OTHER FINDINGS: None. IMPRESSION: No active disease.
== END 2018-05-08 13:04 | disposition home or self-care (01) ==
LOC: H.ER 10:29
DX: J45.909 Unspecified asthma, uncomplicated (principal); J06.9 Acute upper respiratory infection, unspecified; F17.200 Nicotine dependence, unspecified, uncomplicated; F43.10 Post-traumatic stress disorder, unspecified
CPT/HCPCS: 71046; 80053; 81025; 85025; 85378; 85610; 85730; 87070; 87430; 96374; 96375; 99283; J1200; J2930

== ENCOUNTER 2018-05-13 13:59 | Emergency (ER) | payer MEDICAID, OTHER ==
[2018-05-13 13:59] VITALS: BMI 23.0
[2018-05-13] MEDS ORDERED: Albuterol-Ipratrop 3 mg / 0.5 (3 ml) UD INH STA (15:40)
[2018-05-13] MEDS ORDERED: Albuterol-Ipratrop 3 mg / 0.5 (3 ml) UD ONE (16:19)
--- NOTE | 2018-05-13 16:26 | ED PDOC ---
HPI: SOB/CHF/COPD Time Seen by Provider: 05/13/18 15:11 Chief Complaint (Nursing): Respiratory Distress History/Exam Limitations: no limitations Onset/Duration Of Symptoms: Days Current Symptoms Are (Timing): Still Present Initiating Event: Upper Respiratory Illness Quality: Tightness Exacerbating Factor(s): Laying Flat, Coughing Current Respiratory Medications: None Severity: Mild Associated Symptoms: Chest Pain, Productive Cough, Anxiety. denies: Fever, Chills, Sweating, Bloody Cough, Heart Racing, Leg/Calf Pain, Ankle/Leg Swelling, Dizziness, Light-headedness Recently: Seen In ED (6 days ago (05/08)) Additional Complaint(s): 33 yo female with PMH of asthma and anxiety presents with 6 days history of SOB, cough and chest tightness. On Tuesday 05/08 (6 days prior to presentation) she was seen at [facility] ED and was given rx for prednisolone, nebulizer and inhaler with a dx of URI/asthma exacerbation. She was only able to afford the prednisolone and feels like the rest of her URI symptoms have resolved except her shortness of breath, cough and chest tightness. She admits it is worse at night, when she lies down or begins to cough and is only relieved with walking outside. She had one nighttime wakening this week (last night 05/12) but does not have a rescue inhaler. She also complains of intense suprapubic pain and bloating for the last few weeks that waxes and wanes. It does not radiate, is worse when lying down, snf is relieved by sitting forward or passing gas. She says that she has a history of 9 abdominal surgeries for nephrolithiasis/urolithiasis of the right side with the last one being 2014. With the suprapubic pain she is unable to belch and has no flatulence but is able to have a bowel movement. Eventually the pain subsides after she is able to pass gas. She has mild chest pain with coughing but denies fever, vomiting, weight loss, night sweats, diarrhea, constipation, dysuria, frequency, urgency, loss of appetite, weakness or malaise. PMD: None PMHx: Asthma (no rescue inhaler, never been admitted or intubated), anxiety, nephrolithiasis/urolithiasis PSHx: Abd surgery x9 for uro/nephrolithiasis Social: Smokes 2-3 cig/day, no alcohol, no illicit drugs Meds: None Allergies: Dilaudid, itching/hives/loss of hearing OBGYNHx: LMP 05/06/18, every 28 days, 3-4 days moderate bleeding, denies OCP Past Medical History Vital Signs: Last Vital Signs Temp 98.5 F 05/13/18 14:06 Pulse 86 05/13/18 14:06 Resp 19 05/13/18 14:06 BP 135/95 H 05/13/18 14:06 Pulse Ox 100 05/13/18 14:06 - Medical History PMH: Anxiety, Asthma, Bipolar Disorder, Depression, Kidney Stones, Migraine, Post Traumatic Stress Disorder, Chronic Kidney Disease Denies: Diabetes, Hepatitis, HIV, HTN, Seizures, Sexually Transmitted Disease - Surgical History Other surgeries: nephrolithiasis/urolithiasis x9 (most recent 2014) - Family History Family History: States: Unknown Family Hx, Hypertension Denies: [place], CAD - Living Arrangements Living Arrangements: With Family - Social History Current smoker - smoking cessation education provided: Yes (2-3 cigarettes a day) Alcohol: None Drugs: Denies - Immunization History Hx Tetanus Toxoid Vaccination: No Hx Influenza Vaccination: No Hx Pneumococcal Vaccination: No - Home Medications Home Medications: Ambulatory Orders Medication Instructions Recorded Albuterol Sulfate [Albuterol 2 puff IH QID #1 inh 12/06/13 Sulfate Hfa] Naproxen [Naprosyn] 1 tab PO BID PRN #25 tab 12/24/13 Clindamycin [Cleocin] 300 mg PO QID #28 cap 09/19/16 Ibuprofen [Motrin] 600 mg PO TID PRN #30 tab 09/19/16 traMADol [Ultram] 50 mg PO Q8 PRN #12 tab 09/19/16 Cephalexin [Keflex] 500 mg PO QID #28 capsule 10/17/16 Docusate [Colace] 100 mg PO BID #20 cap 10/17/16 Sulfamethoxazole/Trimethoprim 2 each PO BID #28 tablet 10/17/16 [Bactrim Ds Tablet] oxyCODONE/Acetaminophen [Percocet 1 ea PO Q6 PRN #10 tab 10/17/16 5/325 mg Tab] Acetaminophen/Butalbital/Caf 1 tab PO TID PRN #20 tab 03/21/17 [Fioricet] Ondansetron ODT [Zofran ODT] 1 odt PO Q6 PRN #30 odt 03/21/17 SUMAtriptan [Imitrex] 1 tab PO PRN PRN #12 tab 03/21/17 Clotrimazole 1% Cream [Lotrimin 1%] 1 applic TP BID #1 tube 08/03/17 Hydrocortisone 1% Cream [Cortizone 1 appl TP BID #1 tube 08/03/17 1% Cream] Meloxicam [Mobic] 15 mg PO DAILY #20 tab 09/02/17 Guaifenesin 400 mg PO QID #20 tablet 09/17/17 Ibuprofen [Motrin Tab] 600 mg PO QID PRN #20 tab 09/17/17 Ondansetron ODT [Zofran ODT] 4 mg PO DAILY PRN #20 odt 09/17/17 Oseltamivir Phosphate [Tamiflu] 75 mg PO BID #10 capsule 09/17/17 Albuterol HFA [Ventolin HFA 90 2 puff IH Q4H #1 puff 01/13/18 mcg/actuation (8 g)] Naproxen [Naprosyn] 500 mg PO Q12H #20 tab 01/13/18 Non-Formulary 1 ea .ROUTE Q6 #1 ea 01/13/18 Albuterol 0.083% [Albuterol 0.083% 3 ml IH Q6H PRN #30 neb 05/08/18 Inhal Tammy (2.5 mg/3 ml) UD] Albuterol HFA [Ventolin HFA 90 2 puff IH [id number] PRN #1 bottle 05/08/18 mcg/actuation (8 g)] DiphenhydrAMINE [Benadryl] 50 mg PO Q6H PRN #10 cap 05/08/18 Nebulizer [Compact Compressor 1 dev XX PRN PRN #1 dev 05/08/18 Nebulizer] Prednisone 50 mg PO DAILY #4 tab 05/08/18 - Allergies Allergies/Adverse Reactions: Allergies Allergy/AdvReac Type Severity Reaction Status Date / Time hydromorphone HCl Allergy ITCHING Verified 05/08/18 10:38 [From Dilaudid] Review of Systems Constitutional: Negative for: Fever, Chills, Sweats, Weakness, Weight loss Eyes: Negative for: Vision Change Cardiovascular: Positive for: Chest Pain (as per HPI). Negative for: Palpitations, Light Headedness Respiratory: Positive for: Cough, Shortness of Breath, SOB with Exertion, Whee zing Gastrointestinal: Positive for: Abdominal Pain (as per HPI). Negative for: Nausea, Vomiting Genitourinary Female: Positive for: Pelvic Pain (as per HPI - suprapubic). Negative for: Dysuria, Frequency, Incontinence Skin: Negative for: Rash, Jaundice, Bruising Neurological: Negative for: Weakness, Numbness Psych: Positive for: Anxiety. Negative for: Depression Physical Exam - Physical Exam Appears: Positive for: Non-toxic, No Acute Distress Head Exam: Positive for: ATRAUMATIC Skin: Positive for: Normal Color, Warm, Dry Eye Exam: Positive for: Normal appearance Cardiovascular/Chest: Positive for: Regular Rate, Rhythm, Chest Non Tender. Negative for: Edema, Murmur Respiratory: Positive for: Wheezing (inspiratory, anterior) Gastrointestinal/Abdominal: Positive for: Tenderness (suprapubic) Back: Negative for: L CVA Tenderness, R CVA Tenderness Neurologic/Psych: Positive for: Alert, Oriented - Laboratory Results Urine POC: Negative - ECG O2 Sat by Pulse Oximetry: 100 - Radiology X-Ray: Read By Radiologist X-Ray Interpretation: No Acute Disease - Progress ED Course And Treament: 33-year-old female with PMH of asthma and anxiety presents to ED with 6 days history of coughing, chest tightness, and supra-pubic pain. Upreg: Negative Udip: WNL Obstructive series: Lungs clear. No evidence of bowel obstruction. Mild retained feces. Possible constipation. DuoNeb x1, Prednisone 50mg PO x 1, Azithromycin 500mg x1 Disposition - Clinical Impression Clinical Impression: Upper respiratory infection - Patient ED Disposition Is Patient to be Admitted: No - Disposition Referrals: [facility] [Provider Group] Disposition Time: 17:05 Condition: FAIR Additional Instructions: Follow-up within 1 week. Forms: [employer] (Slovenian) Print Language: PORTUGUESE
--- NOTE | 2018-05-13 16:37 | RAD ---
Date of service: 05/13/2018 PROCEDURE: Radiographs of the chest and abdomen (obstructive series) HISTORY: severe abd pain, pmh abd surg x9 COMPARISON: No prior. TECHNIQUE: AP radiograph of the chest, with upright and supine radiographs of the abdomen. FINDINGS: CHEST: Lungs: Clear. Cardiovascular: Normal size heart. No pulmonary vascular congestion. Pleura: No pleural fluid. No pneumothorax. Other findings: None. ABDOMEN AND PELVIS: Bowel: No evidence of bowel obstruction. Mild retained feces. Possible constipation. Free air: None. Bones: Unremarkable. Other findings: None. IMPRESSION: No evidence of bowel obstruction. Mild retained feces. Possible constipation. Otherwise unremarkable.
[2018-05-13 19:45] VITALS: O2SAT 98
[2018-05-13 19:47] VITALS: BP 132/88; PULSE 65; RESP 18; TEMP 98.3
== END 2018-05-13 17:55 | disposition home or self-care (01) ==
LOC: H.ER 13:59
DX: J06.9 Acute upper respiratory infection, unspecified (principal); F17.210 Nicotine dependence, cigarettes, uncomplicated

== ENCOUNTER 2018-10-09 16:33 | Emergency (ER) | payer MEDICAID ==
[2018-10-09 16:34] VITALS: BMI 23.0
[2018-10-09 16:39] VITALS: BP 121/86; PULSE 76; RESP 18; TEMP 97.5; O2SAT 98
[2018-10-09] MEDS ORDERED: Fluorescein 1 mg Ophthalmic Strip OU ONE (16:44)
[2018-10-09] MEDS ORDERED: Tetracaine 0.5% Ophth 2 ML BOTTLE OS ONE (17:03)
[2018-10-09] MEDS ORDERED: Fluorescein 1 mg Ophthalmic Strip ONE (17:04)
--- NOTE | 2018-10-09 17:05 | ED PDOC ---
HPI: Eye Injury/Pain Time Seen by Provider: 10/09/18 17:01 Chief Complaint (Nursing): Eye Problem Chief Complaint (Provider): Eye problem History Per: Patient History/Exam Limitations: no limitations Onset/Duration Of Symptoms: Days (1x) Current Symptoms Are (Timing): Still Present Severity: Moderate Associated Symptoms: Pain (back of left eye), Discharge From Eye (left eye), Other (redness of left eye) Additional Complaint(s): 33 year old female with no pertinent past medical history presents to the ED for an evaluation of left eye redness that she noticed this morning when she woke up and rubbed her eye. Patient also notes having discharge in her left eye. Patient reports using visine drops with no improvement, and later 1x polytrim drop which she was prescribed 4x months ago, with no improvement. Patient further reports having pain to the back of her eye. Patient denies wearing glasses or using contact lenses. PMD: None provided. Past Medical History Reviewed: Historical Data, Nursing Documentation, Vital Signs Vital Signs: Last Vital Signs Temp 97.5 F L 10/09/18 16:37 Pulse 76 10/09/18 16:37 Resp 18 10/09/18 16:37 BP 121/86 10/09/18 16:37 Pulse Ox 98 10/09/18 16:37 [place] Report Viewed: Yes - Medical History PMH: Anxiety, Asthma, Bipolar Disorder, Depression, Kidney Stones, Migraine, Post Traumatic Stress Disorder, Chronic Kidney Disease Denies: Diabetes, Hepatitis, HIV, HTN, Seizures, Sexually Transmitted Disease - Family History Family History: States: Hypertension Denies: [place], CAD - Social History Alcohol: None Drugs: Denies - Immunization History Hx Tetanus Toxoid Vaccination: No Hx Influenza Vaccination: No Hx Pneumococcal Vaccination: No - Home Medications Home Medications: Ambulatory Orders Medication Instructions Recorded Albuterol Sulfate [Albuterol 2 puff IH QID #1 inh 12/06/13 Sulfate Hfa] RX: Naproxen [Naprosyn] 1 tab PO BID PRN #25 tab 12/24/13 Ibuprofen [Motrin] 600 mg PO TID PRN #30 tab 09/19/16 RX: Clindamycin [Cleocin] 300 mg PO QID #28 cap 09/19/16 RX: traMADol [Ultram] 50 mg PO Q8 PRN #12 tab 09/19/16 Cephalexin [Keflex] 500 mg PO QID #28 capsule 10/17/16 Docusate [Colace] 100 mg PO BID #20 cap 10/17/16 Sulfamethoxazole/Trimethoprim 2 each PO BID #28 tablet 10/17/16 [Bactrim Ds Tablet] oxyCODONE/Acetaminophen [Percocet 1 ea PO Q6 PRN #10 tab 10/17/16 5/325 mg Tab] Acetaminophen/Butalbital/Caf 1 tab PO TID PRN #20 tab 03/21/17 [Fioricet] Ondansetron ODT [Zofran ODT] 1 odt PO Q6 PRN #30 odt 03/21/17 SUMAtriptan [Imitrex] 1 tab PO PRN PRN #12 tab 03/21/17 RX: Clotrimazole 1% Cream 1 applic TP BID #1 tube 08/03/17 [Lotrimin 1%] RX: Hydrocortisone 1% Cream 1 appl TP BID #1 tube 08/03/17 [Cortizone 1% Cream] Meloxicam [Mobic] 15 mg PO DAILY #20 tab 09/02/17 Ondansetron ODT [Zofran ODT] 4 mg PO DAILY PRN #20 odt 09/17/17 Oseltamivir Phosphate [Tamiflu] 75 mg PO BID #10 capsule 09/17/17 RX: Guaifenesin 400 mg PO QID #20 tablet 09/17/17 RX: Ibuprofen [Motrin Tab] 600 mg PO QID PRN #20 tab 09/17/17 Naproxen [Naprosyn] 500 mg PO Q12H #20 tab 01/13/18 RX: Albuterol HFA [Ventolin HFA 90 2 puff IH Q4H #1 puff 01/13/18 mcg/actuation (8 g)] RX: Non-Formulary 1 ea .ROUTE Q6 #1 ea 01/13/18 DiphenhydrAMINE [Benadryl] 50 mg PO Q6H PRN #10 cap 05/08/18 RX: Albuterol 0.083% [Albuterol 3 ml IH Q6H PRN #30 neb 05/08/18 0.083% Inhal Tammy (2.5 mg/3 ml) UD] RX: Albuterol HFA [Ventolin HFA 90 2 puff IH [id number] PRN #1 bottle 05/08/18 mcg/actuation (8 g)] RX: Nebulizer [Compact Compressor 1 dev XX PRN PRN #1 dev 05/08/18 Nebulizer] RX: Prednisone 50 mg PO DAILY #4 tab 05/08/18 Azithromycin [Zithromax] 500 mg PO DAILY #2 tab 05/13/18 RX: Albuterol HFA [Ventolin HFA 90 2 puff IH [id number] PRN #1 bottle 05/13/18 mcg/actuation (8 g)] RX: Prednisone 50 mg PO DAILY #4 tab 05/13/18 Ciprofloxacin 0.3% [Ciloxan 0.3% 1 drop OD QID #1 bottle 10/09/18 Ophth SOLN] - Allergies Allergies/Adverse Reactions: Allergies Allergy/AdvReac Type Severity Reaction Status Date / Time hydromorphone HCl Allergy ITCHING Verified 10/09/18 16:36 [From Dilaudid] Review of Systems ROS Statement: Except As Marked, All Systems Reviewed And Found Negative Eyes: Positive for: Pain (pain to the back of left eye), Redness (left eye redness and discharge) Physical Exam - Reviewed Nursing Documentation Reviewed: Yes Vital Signs Reviewed: Yes (VISUAL ACUITY L 20/20 R 20/20 BOTH 20/15) - Physical Exam Appears: Positive for: Well, Non-toxic, No Acute Distress Head Exam: Positive for: ATRAUMATIC, NORMOCEPHALIC Skin: Positive for: Normal Color, Warm, Dry Eye Exam: Positive for: Conjunctival injection (left eye), Other (mild swelling of eyelid. No flourescein uptake.) Neurologic/Psych: Positive for: Alert, Oriented (3x) - ECG O2 Sat by Pulse Oximetry: 98 (RA) Pulse Ox Interpretation: Normal Medical Decision Making Medical Decision Makin:01 Initial impression: 33 year old female with conjunctivitis Initial plan: * fluorescein 1 mg OU once * tetracaine 0.5% opth soln 2 drops OS once * reevaluation Scribe Attestation: Documented byNohelia Arce, acting as a scribe for Elías Balderrama PA-C. Provider Scribe Attestation: All medical record entries made by the Scribe were at my direction and personally dictated by me. I have reviewed the chart and agree that the record accurately reflects my personal performance of the history, physical exam, medical decision making, and the department course for this patient. I have also personally directed, reviewed, and agree with the discharge instructions and disposition. Disposition - Clinical Impression Clinical Impression: Conjunctivitis - Patient ED Disposition Is Patient to be Admitted: No - Disposition Referrals: Vahid Montero MD [Staff Provider] - Disposition: Routine/Home Disposition Time: 17:20 Condition: FAIR Prescriptions: Ciprofloxacin 0.3% [Ciloxan 0.3% Ophth SOLN] 1 drop OD QID #1 bottle Instructions: Conjunctivitis ([place]) (OLEKSANDR)
[2018-10-09] MEDS ORDERED: Tetracaine 0.5% Ophth 2 ML BOTTLE ONE (17:08)
== END 2018-10-09 17:29 | disposition home or self-care (01) ==
LOC: H.ER 16:33
DX: H10.9 Unspecified conjunctivitis (principal); Z86.59 Personal history of other mental and behavioral disorders; F43.10 Post-traumatic stress disorder, unspecified; J45.909 Unspecified asthma, uncomplicated; Z87.442 Personal history of urinary calculi; N18.9 Chronic kidney disease, unspecified; Z88.5 Allergy status to narcotic agent

== ENCOUNTER 2018-11-13 23:12 | Emergency (ER) | payer MEDICAID ==
[2018-11-13 23:12] VITALS: BMI 23.0
[2018-11-13 23:33] VITALS: O2SAT 99
[2018-11-14] MEDS ORDERED: Sodium Chloride 0.9% 1,000 ML IV STA (00:27)
[2018-11-14 01:16] LABS: BASO % 0.3 % (0.0-2.0); EOS # 0.1 K/uL (0.0-0.7); EOS % 0.8 % (0.0-4.0); HEMOGLOBIN 12.3 g/dL (12.0-16.0); LYMPH # 1.8 K/uL (1.0-4.3); MEAN CORPUSCULAR HEMOGLOBIN 32.3 pg (27.0-31.0); MEAN PLATELET VOLUME 10.6 fl (7.2-11.7); MONO # 0.5 K/uL (0.0-0.8); MONO % 7.3 % (0.0-10.0); NEUT # 4.4 K/uL (1.8-7.0); NEUT % 64.6 % (50.0-75.0); NRBC % 0.1 % (0.0-0.0); RBC 3.79 Mil/uL (3.80-5.20); RED CELL DISTRIBUTION WIDTH 12.9 % (11.5-14.5); WHITE BLOOD COUNT 6.8 K/uL (4.8-10.8)
[2018-11-14 01:19] LABS: PROTHROMBIN TIME 11.3 Seconds (9.8-13.1)
[2018-11-14 01:21] LABS: PARTIAL THROMBOPLASTIN TIME 31.7 Seconds (25.6-37.1); SQUAMOUS EPITHIAL 2 /hpf (0-5); URINE AMORPHOUS SEDIMENT RARE /ul (<OCC); URINE BILIRUBIN NEGATIVE (NEGATIVE); URINE BLOOD SMALL (NEGATIVE); URINE CLARITY SLIGHTY-CLOUDY (Clear); URINE COLOR YELLOW (YELLOW); URINE GLUCOSE (UA) NEG (NEGATIVE); URINE LEUKOCYTE ESTERASE TRACE Leu/uL (Negative); URINE PROTEIN 30 mg/dL (NEGATIVE)
[2018-11-14 01:29] LABS: ALB/GLOB RATIO 1.4 (1.0-2.1); ALBUMIN 4.3 g/dL (3.5-5.0); ALT/SGPT 24 U/L (9-52); AST/SGOT 23 U/L (14-36); BLOOD UREA NITROGEN 19 mg/dl (7-17); CALCIUM 9.4 mg/dL (8.4-10.2); GFR NON-AFRICAN AMERICAN > 60
[2018-11-14] MEDS ORDERED: Iohexol 300 100 ML IJ ONE (01:44)
[2018-11-14] MEDS ORDERED: Sodium Chloride 0.9% 50 ML IV ONE (01:44)
--- NOTE | 2018-11-14 02:27 | ED PDOC ---
HPI: Back Time Seen by Provider: 11/13/18 23:42 Chief Complaint (Nursing): Back Pain Chief Complaint (Provider): Back Pain History Per: Patient Onset/Duration Of Symptoms: Hrs (x12) Additional Complaint(s): 33 y/o female presents to the ED complaining of back pain s/p trauma onset x12 hours ago. Patient states that at 11 am today she was at work and was reaching for something above her head with her right arm and a heavy mixing machine fell striking her on the right side of her upper back. Patient states she was able to get up on her own and was able to finish the workday but when she got off of work the pain became worse. Patient is also complaining of right wrist pain. Patient states she hyperextended her wrist when she fell. Denies head injury, hematuria, numbness, tingling, shortness of breath. Past Medical History Reviewed: Historical Data, Nursing Documentation, Vital Signs Vital Signs: Last Vital Signs Temp 98.2 F 11/13/18 23:28 Pulse 72 11/13/18 23:28 Resp 18 11/13/18 23:28 BP 136/95 H 11/13/18 23:28 Pulse Ox 99 11/13/18 23:28 - Medical History PMH: Anxiety, Asthma, Bipolar Disorder, Depression, Kidney Stones, Migraine, Post Traumatic Stress Disorder, Chronic Kidney Disease Denies: Diabetes, Hepatitis, HIV, HTN, Seizures, Sexually Transmitted Disease - Family History Family History: States: Unknown Family Hx, Hypertension Denies: [place], CAD - Immunization History Hx Tetanus Toxoid Vaccination: No Hx Influenza Vaccination: No Hx Pneumococcal Vaccination: No - Home Medications Home Medications: Ambulatory Orders Medication Instructions Recorded Albuterol Sulfate [Albuterol 2 puff IH QID #1 inh 12/06/13 Sulfate Hfa] Naproxen [Naprosyn] 1 tab PO BID PRN #25 tab 12/24/13 Clindamycin [Cleocin] 300 mg PO QID #28 cap 09/19/16 Ibuprofen [Motrin] 600 mg PO TID PRN #30 tab 09/19/16 traMADol [Ultram] 50 mg PO Q8 PRN #12 tab 09/19/16 Cephalexin [Keflex] 500 mg PO QID #28 capsule 10/17/16 Docusate [Colace] 100 mg PO BID #20 cap 10/17/16 Sulfamethoxazole/Trimethoprim 2 each PO BID #28 tablet 10/17/16 [Bactrim Ds Tablet] oxyCODONE/Acetaminophen [Percocet 1 ea PO Q6 PRN #10 tab 10/17/16 5/325 mg Tab] Acetaminophen/Butalbital/Caf 1 tab PO TID PRN #20 tab 03/21/17 [Fioricet] Ondansetron ODT [Zofran ODT] 1 odt PO Q6 PRN #30 odt 03/21/17 SUMAtriptan [Imitrex] 1 tab PO PRN PRN #12 tab 03/21/17 Clotrimazole 1% Cream [Lotrimin 1%] 1 applic TP BID #1 tube 08/03/17 Hydrocortisone 1% Cream [Cortizone 1 appl TP BID #1 tube 08/03/17 1% Cream] Meloxicam [Mobic] 15 mg PO DAILY #20 tab 09/02/17 Guaifenesin 400 mg PO QID #20 tablet 09/17/17 Ibuprofen [Motrin Tab] 600 mg PO QID PRN #20 tab 09/17/17 Ondansetron ODT [Zofran ODT] 4 mg PO DAILY PRN #20 odt 09/17/17 Oseltamivir Phosphate [Tamiflu] 75 mg PO BID #10 capsule 09/17/17 Albuterol HFA [Ventolin HFA 90 2 puff IH Q4H #1 puff 01/13/18 mcg/actuation (8 g)] Naproxen [Naprosyn] 500 mg PO Q12H #20 tab 01/13/18 Non-Formulary 1 ea .ROUTE Q6 #1 ea 01/13/18 Albuterol 0.083% [Albuterol 0.083% 3 ml IH Q6H PRN #30 neb 05/08/18 Inhal Tammy (2.5 mg/3 ml) UD] Albuterol HFA [Ventolin HFA 90 2 puff IH [id number] PRN #1 bottle 05/08/18 mcg/actuation (8 g)] DiphenhydrAMINE [Benadryl] 50 mg PO Q6H PRN #10 cap 05/08/18 Nebulizer [Compact Compressor 1 dev XX PRN PRN #1 dev 05/08/18 Nebulizer] Prednisone 50 mg PO DAILY #4 tab 05/08/18 Albuterol HFA [Ventolin HFA 90 2 puff IH [id number] PRN #1 bottle 05/13/18 mcg/actuation (8 g)] Azithromycin [Zithromax] 500 mg PO DAILY #2 tab 05/13/18 Prednisone 50 mg PO DAILY #4 tab 05/13/18 Ciprofloxacin 0.3% [Ciloxan 0.3% 1 drop OD QID #1 bottle 10/09/18 Ophth SOLN] Lidocaine 5% [Lidoderm] 1 ea TD DAILY PRN #10 patch 11/14/18 Naproxen [Naprosyn] 500 mg PO BID PRN #10 tab 11/14/18 - Allergies Allergies/Adverse Reactions: Allergies Allergy/AdvReac Type Severity Reaction Status Date / Time hydromorphone HCl Allergy ITCHING Verified 10/09/18 16:36 [From Dilaudid] Review of Systems ROS Statement: Except As Marked, All Systems Reviewed And Found Negative Respiratory: Negative for: Shortness of Breath Musculoskeletal: Positive for: Back Pain, Hand Pain Neurological: Negative for: Numbness Physical Exam - Reviewed Nursing Documentation Reviewed: Yes Vital Signs Reviewed: Yes - Physical Exam Appears: Positive for: In Acute Distress (minimal painful distress) Cardiovascular/Chest: Positive for: Regular Rate, Rhythm. Negative for: Murmur Respiratory: Positive for: Normal Breath Sounds. Negative for: Respiratory Distress Back: Negative for: Normal Inspection (right flank area has small amount of ecchymosis), L CVA Tenderness, R CVA Tenderness, Vertebral Tenderness Extremity: Positive for: Tenderness (right wrist has minimal tenderness to dorsal surface). Negative for: Deformity, Swelling, Other (break in skin integrity) Neurological/Psych: Positive for: Awake, Alert, Normal Tone, Oriented (x3). Negative for: Motor/Sensory Deficits - Laboratory Results Result Diagrams: 11/14/18 01:00 11/14/18 01:00 Lab Results: PT 11.3 Seconds (9.8-13.1) 11/14/18 01:00 INR 1.0 11/14/18 01:00 APTT 31.7 Seconds (25.6-37.1) 11/14/18 01:00 Total Bilirubin 0.3 mg/dl (0.2-1.3) 11/14/18 01:00 AST 23 U/L (14-36) 11/14/18 01:00 ALT 24 U/L (9-52) 11/14/18 01:00 Alkaline Phosphatase 66 U/L (38-126) 11/14/18 01:00 Total Protein 7.4 G/DL (6.3-8.2) 11/14/18 01:00 Albumin 4.3 g/dL (3.5-5.0) 11/14/18 01:00 Globulin 3.1 gm/dL (2.2-3.9) 11/14/18 01:00 Albumin/Globulin Ratio 1.4 (1.0-2.1) 11/14/18 01:00 Urine Color Yellow (YELLOW) 11/14/18 01:00 Urine Clarity Slighty-cloudy (Clear) 11/14/18 01:00 Urine pH 5.0 (5.0-8.0) 11/14/18 01:00 Ur Specific [place] 1.027 (1.003-1.030) 11/14/18 01:00 Urine Protein 30 mg/dL (NEGATIVE) 11/14/18 01:00 Urine Glucose (UA) Neg mg/dL (NEGATIVE) 11/14/18 01:00 Urine Ketones Negative mg/dL (NEGATIVE) 11/14/18 01:00 Urine Blood Small (NEGATIVE) 11/14/18 01:00 Urine Nitrate Negative (NEGATIVE) 11/14/18 01:00 Urine Bilirubin Negative (NEGATIVE) 11/14/18 01:00 Urine Urobilinogen 2.0 mg/dL (0.2-1.0) H 11/14/18 01:00 Ur Leukocyte Esterase Trace Ale/uL (Negative) 11/14/18 01:00 Urine RBC (Auto) 7 /hpf (0-3) H 11/14/18 01:00 Urine Microscopic WBC 2 /hpf (0-5) 11/14/18 01:00 Ur Squamous Epith Cells 2 /hpf (0-5) 11/14/18 01:00 Amorphous Sediment Rare /ul (<OCC) H 11/14/18 01:00 - ECG O2 Sat by Pulse Oximetry: 99 (RA) Pulse Ox Interpretation: Normal Medical Decision Making Medical Decision Making: Time: 00:26 Initial Impression: Back and wrist pain Initial Plan: * CT Abd Pelvis * CT Chest * Morphine * IV Fluids * Zofran * RAD wrist 03:35 CT Chest FINDINGS: Normal unenhanced main pulmonary artery and right and left pulmonary arteries. Normal bilateral peripheral pulmonary arteries. Normal thoracic aorta and visualized great vessels. There is no demonstrated aortic aneurysm. Normal heart and pericardium. Normal mediastinum. Normal hilar regions. Normal visualized trachea and bronchi. The lungs are well expanded. Normal pulmonary parenchyma. Normal pleura. Normal chest wall structures. Normal osseous structures. Normal visualized upper abdomen. IMPRESSION: Normal CT chest examination. 03:57 CT Abd Pelvis COMMENTS: Uncomplicated colonic diverticulosis. Moderate amount of fecal residue is noted in the large bowels. Mild right hydroureteronephrosis. The liver is of uniform attenuation without mass or defect. There is no intra or extrahepatic biliary ductal dilatation. The spleen is normal. The gallbladder is within normal limits. The pancreas is of normal contour and attenuation characteristics. There is no evidence of adrenal mass. Both kidneys demonstrate prompt and equal nephrograms. The kidneys are normal in size, shape and configuration. There is no evidence of renal or ureteral mass. No renal or ureteral calculi are identified. There is no left hydroureter or hydronephrosis. No evidence for appendicitis. There is no bowel wall thickening. No evidence for small or large bowel obstruction. There is no evidence of abdominal ascites or lymphadenopathy. There is no evidence of intrinsic or extrinsic bladder mass. There is no pelvic ascites or lymphadenopathy. Images of the lung bases show no evidence of pleural or parenchymal mass. There are no pleural effusions. The bony structures are free of lytic or blastic lesions. IMPRESSION: Uncomplicated colonic diverticulosis. Moderate amount of fecal residue is noted in the large bowels. Mild right hydroureteronephrosis. Probably secondary to reflux from distended bladder. No evidence of acute abdominal or pelvic pathology. Informed of all results. Advised to f/u with PMD for further evaluation but is to return to ED immediately if symptoms worsen. Scribe Attestation: Documented by Mc Johns, acting as a scribe Ramírez Barber PA-C Provider Scribe Attestation: All medical record entries made by the Scribe were at my direction and personally dictated by me. I have reviewed the chart and agree that the record accurately reflects my personal performance of the history, physical exam, medical decision making, and the department course for this patient. I have also personally directed, reviewed, and agree with the discharge instructions and disposition Disposition - Clinical Impression Clinical Impression: Back contusion, Wrist sprain - Patient ED Disposition Is Patient to be Admitted: No - Disposition Referrals: [facility] [Outside] Disposition: Routine/Home Disposition Time: 04:00 Condition: IMPROVED Additional Instructions: FOLLOW UP WITH YOUR DOCTOR FOR FURTHER EVALUATION RETURN TO ED IMMEDIATELY IF SYMPTOMS WORSEN TOY PEDRO, thank you for letting us take care of you today. Your provider was Diana Bobo MD and you were treated for BACK PAIN. The emergency medical care you received today was directed at your acute symptoms. If you were prescribed any medication, please fill it and take as directed. It may take several days for your symptoms to resolve. Return to the Emergency Department if your symptoms worsen, do not improve, or if you have any other problems. Please contact your doctor or call one of the physicians/clinics you have been referred to that are listed on the Patient Visit Information form that is included in your discharge packet. Bring any paperwork you were given at [facility] with you along with any medications you are taking to your follow up visit. Our treatment cannot replace ongoing medical care by a primary care provider outside of the emergency department. Thank you for allowing the [facility] team to be part of your care today. If you had an X-Ray or CT scan: A Radiologist will review the ED reading if any change in treatment is needed we will contact you. If you had a blood, urine, or wound culture: It will take several days for the results, if any change in treatment is needed we will contact you. If you had an STI test: It will take 48 hours for the results. Please call after 1 week if you have not heard back. Prescriptions: Lidocaine 5% [Lidoderm] 1 ea TD DAILY PRN #10 patch PRN Reason: Pain Naproxen [Naprosyn] 500 mg PO BID PRN #10 tab PRN Reason: Pain Instructions: Wrist Sprain (DC), Contusion (DC) Forms: [employer] (Bangladeshi), [facility] ED School/Work Excuse Print Language: DOMINICAN
[2018-11-14 07:48] VITALS: BP 122/56; PULSE 78; RESP 20; TEMP 98.3
--- NOTE | 2018-11-14 08:50 | RAD ---
Date of service: 11/14/2018 PROCEDURE: Right Wrist Radiographs. HISTORY: trauma COMPARISON: None. TECHNIQUE: 4 views obtained. FINDINGS: BONES: No acute fracture or destructive bony lesion identified. The navicular and remaining carpal bones appear intact. JOINTS: Normal. No dislocation. SOFT TISSUES: Normal. OTHER FINDINGS: None. IMPRESSION: Unremarkable right wrist radiographs.
--- NOTE | 2018-11-14 16:34 | CT ---
Date of service: 11/14/2018 PROCEDURE: CT Abdomen and Pelvis with contrast HISTORY: s/p trauma; R flank hematoma COMPARISON: Abdomen and pelvis CT with contrast 10/17/2016. TECHNIQUE: Following the intravenous administration of iodinated contrast material, a CT examination of the abdomen and pelvis was performed from the domes of the diaphragms to the symphysis pubis with reformatted datasets provided in axial, sagittal and coronal planes. Oral contrast was not administered as per referring physician request. Contrast dose: Omnipaque 300, 95 cc Radiation dose: Total exam DLP = 257.42 mGy-cm. This CT exam was performed using one or more of the following dose reduction techniques: Automated exposure control, adjustment of the mA and/or kV according to patient size, and/or use of iterative reconstruction technique. FINDINGS: LOWER THORAX: Unremarkable. LIVER: Unremarkable. No gross lesion or ductal dilatation. GALLBLADDER AND BILE DUCTS: Unremarkable. PANCREAS: Unremarkable. No gross lesion or ductal dilatation. SPLEEN: Unremarkable. ADRENALS: Unremarkable. No mass. KIDNEYS AND URETERS: Left kidney is unremarkable. Imaging through the right kidney reveals increased dilatation of the pelvocaliceal system with mild dilatation of the ureter, potentially on the basis of reflux from a mildly distended urinary bladder though the left pelvocaliceal system remains unremarkable. Potential distal right ureteral stricture or lucent calculus is not excluded. Further correlation advised. VASCULATURE: Unremarkable. No aortic aneurysm. No aortic atherosclerotic calcification or mural plaque present. BOWEL: Relatively prominent fecal loading throughout the colon may indicate an element of constipation. Clinically correlate further. No obstruction. No gross mural thickening. APPENDIX: Not identified. No CT pattern to suggest appendicitis. PERITONEUM: Unremarkable. No free fluid. No free air. LYMPH NODES: Unremarkable. No enlarged lymph nodes. BLADDER: Unremarkable. REPRODUCTIVE: Unremarkable. BONES: No acute fracture as imaged. OTHER FINDINGS: No fluid collection appreciate in the extra abdominal soft tissues including the right flank. IMPRESSION: 1. No acute posttraumatic rib findings appreciate the abdomen or pelvis including fracture, hemoperitoneum or visceral rupture. No free intra peritoneal gas collection identified. 2. Prominent right renal pelvicaliceal system, more so than previously shown which may indicate reflux from moderate urinary bladder distension as the right ureter is also mildly distended. Also consider distal right ureteral stricture or loosing calculus as differential diagnoses. 3. Resolution of prior left gluteal/perirectal abscess. Prominent retained fecal material throughout the colon as per above. Partial discordance with etiology of right renal pelvocaliceal system and the right ureteral dilatation as per above. Otherwise concordant with preliminary report by [facility] 11/14/2018, 3:57 a.m..
--- NOTE | 2018-11-14 16:45 | CT ---
Date of service: 11/14/2018 PROCEDURE: CT Chest without contrast HISTORY: R sided chest trauma COMPARISON: None available. TECHNIQUE: Contiguous axial images were obtained through the chest without intravenous contrast enhancement. Sagittal and coronal reconstructions were performed. Radiation dose: Total exam DLP = 140.62 mGy-cm. This CT exam was performed using one or more of the following dose reduction techniques: Automated exposure control, adjustment of the mA and/or kV according to patient size, and/or use of iterative reconstruction technique. FINDINGS: LUNGS: Clear lungs. Visualized airway clear MEDIASTINUM: Unremarkable thoracic aorta. No aneurysm. Normal sized heart. Main pulmonary artery unremarkable. No vascular congestion. No lymphadenopathy. No aortic atherosclerotic calcification. PLEURA: No pleural fluid. No pneumothorax. BONES: No fracture. No destructive lesion. UPPER ABDOMEN: Grossly unremarkable. OTHER FINDINGS: None. IMPRESSION: Unremarkable non-contrast enhanced CT of the chest. Concordant preliminary report from [facility], 11/14/2018, 3:35 a.m..
== END 2018-11-14 04:10 | disposition home or self-care (01) ==
LOC: H.ER 23:12
DX: S20.221A Contusion of right back wall of thorax, initial encounter (principal); S63.501A Unspecified sprain of right wrist, initial encounter; W20.8XXA Other cause of strike by thrown, projected or falling object, initial encounter; Y99.0 Civilian activity done for income or pay; J45.909 Unspecified asthma, uncomplicated; Z86.59 Personal history of other mental and behavioral disorders; N18.9 Chronic kidney disease, unspecified; Z87.442 Personal history of urinary calculi; Z88.5 Allergy status to narcotic agent
CPT/HCPCS: 71250; 73110; 74177; 80053; 81003; 81025; 85025; 85610; 85730; 86850; 86900; 87086; 87181; 96374; 96375; 96376; 99283; J2270; J2405; J7030; Q9967